=== PATIENT | male | born 1965 | race Caucasian/White ===

== ENCOUNTER 2020-07-17 14:58 | Outpatient (CLI) | payer OTHER, SELFPAY ==
--- NOTE | ~2020-07-17 | XR_ITS ---
EXAMINATION: XR abdomen obstructive series DATE: 07/17/2020 15:45 INDICATION: Abdomen pain TECHNIQUE: Supine and upright views of the abdomen. FINDINGS: 09/03/2010 The visualized lung parenchyma is normal.. There is a bowel gas pattern. Gas and stool are seen throu ghout the colon to the level of the rectum. There is no free air. IMPRESSION: 1. No acute abdominal abnormality. Reviewed, dictated and finalized at location B.
--- NOTE | ~2020-07-17 | US_ITS ---
US right upper quadrant INDICATION: Epigastric and upper abdominal pain PROCEDURE: Realtime right upper abdominal ultrasound. COMPARISON: No prior studies for comparison. FINDINGS: Visualized aspects of the pancreas are unremarkable. Liver echotexture is increased, consi stent with fatty infiltration. There is normal directional flow in the portal vein. The gallbladder is normal without stones, gallbladder wall thickening or pericholecystic fluid. Comm on bile duct measures 3 mm. No sonographic Dickinson's sign. IMPRESSION: 1: Hepatic steatosis. Reviewed, dictated and finalized at location B. IMPRESSION: 1: Hepatic steatosis.
== END 2020-07-17 14:59 | disposition home or self-care (01) ==
PROVIDERS: PCP Family Medicine; Visit Provider Family Medicine
DX: R10.11 Right upper quadrant pain (principal); K76.0 Fatty (change of) liver, not elsewhere classified
CPT/HCPCS: 74019; 76705

== ENCOUNTER 2020-12-04 13:41 | Outpatient (CLI) | payer OTHER, SELFPAY ==
--- NOTE | ~2020-12-04 | XR_ITS ---
XR knee LT 3V DATE: 12/04/2020 14:01 INDICATION: Left knee pain. No injury. TECHNIQUE: [place], AP and lateral views COMPARISON: None FINDINGS: Mild periarticular spurring of the patella. There is evidence of mild to moderate suprapatellar knee joint effusion. No fracture, dislocation, periosteal reaction or bone destruction. No radiopaque intra-articular loos e body or chondrocalcinosis. IMPRESSION: Knee joint effusion Periarticular spurring of the patella Reviewed, dictated and finalized at location A. RLIFT OPERATOR
== END 2020-12-04 13:42 | disposition home or self-care (01) ==
LOC: ANHIMG 13:52
PROVIDERS: PCP Family Medicine; Visit Provider Physician Assistant
DX: M25.462 Effusion, left knee (principal)
CPT/HCPCS: 73562

== ENCOUNTER → 2021-01-12 09:48 | Outpatient (CLI) | payer OTHER, SELFPAY ==
--- NOTE | ~2021-01-12 | MR_ITS ---
EXAMINATION: MR knee LT wo con DATE: 01/12/2021 10:30 INDICATION: Left knee pain TECHNIQUE: Magnetic resonance imaging (MRI) of the left knee was performed without intravenous contra st. Sequences included coronal PD-weighted FSE, coronal PD-weighted FS FSE, sagittal T2-weighted FSE , sagittal PD-weighted FS FSE and axial PD weighted fat saturated FSE. COMPARISON: None. FINDINGS: Medial compartment: Volar near full-thickness radial tear at the posterior horn of the medial meniscus. Partial-thickness cartilage ulceration at the anterior to central weightbearing medial femoral condyle. Mild chondral surface irregularity along the juxtaposed medial tibial plateau. Small marginal osteophytes are prese nt. Lateral compartment: Lateral meniscus is normal. Partial-thickness chondral ulceration at the junction of the anterior to central weightbearing lateral femoral condyle with underlying small central subchondral osteophyte. C artilage at the lateral tibial plateaus relatively preserved. Tiny marginal osteophytes are present. Patellofemoral compartment: Partial-thickness cartilage loss with chondral surface regularity along the lateral patellar facet. C artilage thickness relatively preserved with partial-thickness fissuring at the medial patellar facet . Partial-thickness cartilage loss with relatively smooth chondral surface along the superolateral as pect of the lateral trochlea. Small marginal osteophytes are present. Ligaments and tendons: Anterior and posterior cruciate ligaments are normal. The medial collateral ligament and fibular gio ateral ligament complex are normal. Mild tendinopathy/enthesopathy without discrete tear at the dista l quadriceps tendon and at the proximal end distal patellar tendon. The visualized medial and lateral hamstring tendons as well as the iliotibial band are normal. Fluid: Small left knee joint effusion which is primarily in the lateral gutter of the suprapatellar pouch. N o loose osteochondral bodies identified. Osseous/other: Normal marrow signal. No fracture or pathologic marrow replacing process. IMPRESSION: 1. Full-thickness radial tear at the posterior horn of the medial meniscus. 2. Mild tricompartmental osteoarthritis with small regions of high-grade chondromalacia at the weight bearing lateral femoral condyle and more extensive moderate grade chondromalacia in the medial and pa tellofemoral compartments. 3. Mild tendinopathy/enthesopathy at the osseous insertions of the extensor mechanism. Reviewed, dictated and finalized at location B. IMPRESSION: 1. Full-thickness radial tear at the posterior horn of the medial meniscus. 2. Mild tricompartmental osteoarthritis with small regions of high-grade chondr omalacia at the weightbearing lateral femoral condyle and more extensive modera te grade chondromalacia in the medial and patellofemoral compartments. 3. Mild tendinopathy/enthesopathy at the osseous insertions of the extensor mec hanism.
== END ==
PROVIDERS: PCP Family Medicine; Visit Provider Nurse Practitioner Family
DX: M17.12 Unilateral primary osteoarthritis, left knee (principal); S83.242A Other tear of medial meniscus, current injury, left knee, initial encounter; X58.XXXA Exposure to other specified factors, initial encounter
CPT/HCPCS: 73721

== ENCOUNTER → 2021-02-14 02:26 | Outpatient (CLI) | payer OTHER, SELFPAY ==
[2021-02-14 19:43] LABS: SARS-CoV-2 RNA PCR Negative
== END ==
PROVIDERS: PCP Family Medicine; Visit Provider Orthopaedic Surgery
DX: Z01.812 Encounter for preprocedural laboratory examination (principal); Z20.822 Contact with and (suspected) exposure to COVID-19
CPT/HCPCS: C9803; U0003; U0005

== ENCOUNTER 2021-02-16 08:07 | Outpatient (CLI) | payer OTHER, SELFPAY ==
[2021-02-16 08:51] LABS: Basophils Absolute Auto 0.1 K/mm3 (0.0-0.1); Basophils Percent Auto 0.6 % (0.2-1.2); Eosinophils Absolute Auto 0.3 K/mm3 (0-0.3); Eosinophils Percent Auto 2.9 % (0-4.4); Hemoglobin 15.6 g/dL (14.0-18.0); Immature Granulocyte Absolute 0.03 K/mm3 (0.00-0.031); Immature Granulocyte Percent A 0.3 % (0-0.5); Lymphocytes Absolute Auto 3.59 K/mm3 (0.9-3.2); Lymphocytes Percent Auto 33.6 % (18.3-44.2); Mean Corpuscular HGB Conc 33.2 g/dl (32-36); Mean Corpuscular Hemoglobin 29.2 pg (26-34); Mean Platelet Volume 10.2 fl (7.4-10.4); Monocytes Absolute Auto 0.6 K/mm3 (0.1-0.6); Monocytes Percent Auto 5.6 % (2.6-8.5); Neutrophils Absolute Auto 6.1 K/mm3 (1.3-6.7); Platelet Count Result 276 k/mm3 (150-375); Red Blood Count 5.34 M/mm3 (4.6-6.20); White Blood Count 10.7 K/mm3 (4.5-10.0)
[2021-02-16 10:26] LABS: Hemoglobin A1C 6.6 % (<5.7)
[2021-02-16 11:14] LABS: Alanine Aminotransferase 26 U/L (4-50); Albumin Level 4.6 g/dL (3.5-5.1); Alkaline Phosphatase 94 U/L (38-126); Anion Gap 8 mmol/L (8-16); Aspartate Amino Transferase 32 U/L (17-59); Bilirubin,Total 0.5 mg/dL (0.2-1.3); Blood Urea Nitrogen 14 mg/dL (9-20); Calcium 9.3 mg/dL (8.4-10.2); Carbon Dioxide 28 mmol/L (22-30); Chloride 100 mmol/L (98-107); Cholesterol 249 mg/dL (0-200); Estimated Glomerular Filt Rate > 60; Glucose 139 mg/dL (75-110); Potassium 4.3 mmol/L (3.4-5.0); Sodium 136 mmol/L (137-145); Triglycerides 1269 mg/dL (<150)
[2021-02-16 11:15] LABS: LDL Cholesterol Direct < 60 mg/dL
== END 2021-02-16 08:08 | disposition home or self-care (01) ==
PROVIDERS: PCP Family Medicine; Visit Provider Physician Assistant
DX: E78.2 Mixed hyperlipidemia (principal); F17.200 Nicotine dependence, unspecified, uncomplicated; R03.0 Elevated blood-pressure reading, without diagnosis of hypertension; R73.03 Prediabetes
CPT/HCPCS: 36415; 80053; 80061; 83036; 85025

== ENCOUNTER 2021-02-18 03:04 | Day surgery (SDC) | payer OTHER, SELFPAY ==
[2021-02-03 14:22] VITALS: BMI 40.6
[2021-02-18] VITALS (7 sets, daily range): BP systolic 139–165; BP diastolic 88–99; PULSE 70–80; RESP 12–20; TEMP 36.6–36.7; O2SAT 92–99; BMI 41.1
--- NOTE | 2021-02-18 07:51 | WPDANESEPPF ---
Anes - Initial Pre Proc Eval Procedure: Operation Date: 02/18/21 13:30 Proposed Procedures p Left Knee Arthroscopy, Proceed As Indicated - Jarad Walter MD Date/Time: 02/18/21 07:51 Surgeon: Jarad Walter MD Pre Op Diagnosis: left knee medial meniscus tear Patient Data Age: 55 Gender: M Height: 1.83 m Weight: 136 kg Allergies Allergy/AdvReac Type Severity Reaction Status Date / Time No Known Allergies Allergy Verified 02/18/21 11:33 Home Medications Medication Instructions Recorded Confirmed Type sildenafil 100 mg tablet 100 mg PO DAILY PRN #30 tablet 12/04/20 02/18/21 Rx chlorhexidine gluconate 4 % 1 applic TOPICAL ONCE #237 ml 01/20/21 02/18/21 Rx topical liquid tramadol 50 mg PO TID PRN 02/03/21 02/18/21 History Patient hx anesthesia problems: none Family hx anesthesia problems: none PMFSH Past Medical History Medical History (Updated 02/18/21 @ 07:53 by Malick Serrano MD) Abnormal colonoscopy Arthritis Chronic narcotic use COPD (chronic obstructive pulmonary disease) Depression Medial meniscus tear Mixed hypercholesterolemia and hypertriglyceridemia Morbid obesity with BMI of 40.0-44.9, adult STEPHANIE (obstructive sleep apnea) Serrated adenoma of colon Smoker Weight gain Family History Family History Father Hypertension Family history of elevated blood lipids Malignant neoplasm of prostate Mother Family history of malignant neoplasm of cervix Social History Social History (Updated 01/29/21 @ 16:03 by Smiley Ledezma CMA) Social History: Smoking packs per day: 0.5 Smoking cigarettes per day: 10.0 Years smoked: 18 Smoking pack-years: 9.00 Smoking status: Current every day smoker Tobacco type: cigarettes Second hand tobacco smoke exposure: Yes Alcohol intake: current Drinks per week: 14 Substance use: never Substance use type: does not use Living arrangements: with family Gender identity (if verbalized by the patient): Male Spiritual care concerns: No Anes - Eval Final PreProcedure Day of Procedure 02/18/21 07:51 Patient weight: obese Heart: regular rate and rhythm Lungs: clear to auscultation and normal air movement Airway: Mallampati scale class II Neurological: alert and oriented Last oral intake: >/= 8 hours ASA classification: III Emergent: no Anesthetic plan: proceed Anesthesia type and monitoring: general LMA and ETT Informed Consent: The patient's anesthetic plan and its attendant risks and benefits were discussed with the patient/family/POA. Questions were solicited and answers provided to the satisfaction of the patient/family/POA.
--- NOTE | 2021-02-18 08:19 | WPDHPUPDATE1 ---
History and Physical Update Update Date/Time: 02/18/21 08:19 History and Physical has been reviewed, including an updated exam of the patient. There are NO changes in the patient's condition. Risks, benefits, and alternatives have been discussed and questions answered. Patient agrees to proceed with procedure.
[2021-02-18] MEDS: CELECOXIB 200 MG CAPSULE PO (11:36)
[2021-02-18] MEDS: ACETAMINOPHEN 500 MG TABLET 1000 MG PO (11:36)
--- NOTE | 2021-02-18 12:00 | SUR.PREOP ---
PT STATES HE HAS USED CRUTCHES BEFORE AND DOESN'T NEED TRAINING. CRUTCHES WERE ORDERED
[2021-02-18] MEDS: LACTATED RINGERS 1,000 ML 30 ML IV CONT ×2 (12:12→15:45)
--- NOTE | 2021-02-18 13:33 | SUR.PREOP ---
1215; PT AWARE THAT DR ZENG IS RUNNING ABOUT 1 HOUR BEHIND SCHEDULE
[2021-02-18] MEDS: ceFAZolin 3 GM/D5W 100 ML 100 ML IVPB (14:25)
[2021-02-18] MEDS: BUPIVACAINE/EPINEPHRINE 0.5% 30 ML VIAL INFILTRATE (14:52)
--- NOTE | 2021-02-18 15:47 | PM.PROC ---
Procedure Note - Detailed Date of procedure: 02/18/21 Pre-op diagnosis: left knee medial meniscus tear Post-op diagnosis: same Procedure performed: LEFT KNEE SCOPE WITH PARTIAL MEDIAL MENISCECTOMY AND MAJOR SYNOVECTOMY Description of procedure: PATIENT WAS TAKEN TO THE OR. LEFT LEG WAS PREPPED AND DRAPED STERILE. TROCARS WERE PLACED IN THE USUAL FASHION. CAMERA WAS INTRODUCED. THERE WAS CHONDROMALACIA TO THE PATELLA FEMORAL JOINT. THERE WAS A LOT OF SYNOVITIS IN ALL COMPARTMENTS. THE MEDIAL COMPARTMENT SHOWED CHONDROMALACIA TO THE MED FEMORAL CONDYLE. A SHAVER WAS USED TO PREFORM A CHONDROPLASTY. THERE WAS A COMPLEX MEDIAL MENISCUS TEAR. THE TEAR WAS RESECTED WITH A BITER AND A SHAVER DOWN TO A SMOOTH BASE. ABOUT 20% OF THE MENISCUS WAS REMOVED. THE ACL WAS INTACT. THE LATERAL MENISCUS WAS NOT TORN. THE LAT COMPARTMENT HAD MILD CHONDROMALACIA. A CHONDROPLASTY AND SYNOVECTOMY WAS PREFORMED. THE PATELLO FEMORAL JOINT UNDERWENT CHONDROPLASTY. SYNOVECTOMY WAS PREFORMED IN THE SUPERIOR MEDIAL COMPARTMENT. THE WOUNDS WERE APPROXIMATED WITH 4.0 NYLON. STERILE DRESSING WAS APPLIED. PATIENT WAS EXTUBATED. Anesthesia: GLMA Surgeon: Jarad Walter MD Estimated blood loss (mL): 5 Complications: No immediate complications Condition: stable Disposition: PACU
[2021-02-18] MEDS: fentaNYL CITRATE INJ (*CRX) 100 MCG/2 ML VIAL 25 MCG IV PUSH ×2 (16:21→16:24)
[2021-02-18] MEDS: oxyCODONE HCL (*CRX) 5 MG TAB IR PO (17:11)
--- NOTE | 2021-02-19 08:07 | WPDANESPN ---
Anes - Prog Note Post-Op Date/Time: 02/19/21 08:07 Cardiovascular status: normal Respiratory status: normal Airway patency: baseline Mental status: baseline Post-Op hydration status: normal Vital Signs: Last Vital Signs Temp 97.8 F 02/18/21 15:50 Pulse 71 02/18/21 17:20 Resp 16 02/18/21 17:20 BP 162/92 H 02/18/21 17:20 Pulse Ox 99 02/18/21 16:35 Pain Score (VAS): 11/09 I/O: Intake & Output 02/18/21 02/19/21 02/19/21 23:59 07:59 15:59 Intake Total 650 Balance 650 Post-procedural complaints: none Patient Feedback: Patient satisfied with anesthetic care.
== END 2021-02-18 17:40 | disposition home or self-care (01) ==
PROVIDERS: PCP Family Medicine; Visit Provider Orthopaedic Surgery
PROC: (CPT 29870; principal; 2021-02-18 13:30)
DX: S83.232A Complex tear of medial meniscus, current injury, left knee, initial encounter (principal); X50.0XXA Overexertion from strenuous movement or load, initial encounter; M94.262 Chondromalacia, left knee; M65.862 Other synovitis and tenosynovitis, left lower leg; J44.9 Chronic obstructive pulmonary disease, unspecified; E78.2 Mixed hyperlipidemia; G47.33 Obstructive sleep apnea (adult) (pediatric); F32.9 Major depressive disorder, single episode, unspecified; F17.210 Nicotine dependence, cigarettes, uncomplicated; E66.01 Morbid (severe) obesity due to excess calories; Z68.41 Body mass index [BMI] 40.0-44.9, adult
CPT/HCPCS: 29881; 29876; A9270; C9803; J0690; J2250; J2405; J2704; J3010; J7120; U0003; U0005

== ENCOUNTER 2021-05-05 10:14 | Emergency (ER) | payer OTHER, SELFPAY ==
--- NOTE | ~2021-05-05 | XR_ITS ---
EXAMINATION: XR wrist RT min 3V DATE: 05/05/2021 10:33 INDICATION: Right wrist injury and pain. TECHNIQUE: 4 views of right wrist were obtained. COMPARISON: None. FINDINGS: Bone alignment is normal. There is a nondisplaced oblique fracture of distal ulnar diaphysi s. Joint spaces are normal. IMPRESSION: 1. Nondisplaced oblique fracture of distal ulnar diaphysis. Reviewed, dictated and finalized at location A.
[2021-05-05 10:24] VITALS: BP 156/76; PULSE 66; RESP 18; TEMP 36.9; O2SAT 98
--- NOTE | 2021-05-05 10:57 | ED.UPPEXIN ---
HPI - Extremity Injury (Upper) General Chief Complaint: Extremity Injury, Upper Stated Complaint: Rt forearm pain Time Seen by Provider: 05/05/21 10:25 Source: patient and RN notes reviewed Mode of arrival: ambulatory Limitations: no limitations History of Present Illness HPI narrative: Patient presents today complaining of right wrist pain. 3 days ago he fell onto outstretched hands onto a wooden deck and has been experiencing right wrist pain since that time. Denies numbness or tingling in the arm or hand. Currently rates his pain 4/10 and describes it as a dull ache. Pain increases with movement. He has been taking ibuprofen, which does provide some relief. MD complaint: injury to: right and wrist Related Data Allergies Allergy/AdvReac Type Severity Reaction Status Date / Time No Known Allergies Allergy Verified 03/06/21 10:14 Review of Systems Review of Systems: Narrative: CONSTITUTIONAL: Denies body aches, fever, chills, or sweats. EYES: Denies visual changes, redness, or discharge. ENT: Denies rhinorrhea, congestion, sore throat, or otalgia. CARDIOVASCULAR: Denies chest pain, palpitations, or edema. RESPIRATORY: Denies cough or dyspnea. GASTROINTESTINAL: Denies abdominal pain, nausea, vomiting, or diarrhea. GENITOURINARY: Denies dysuria or hematuria. SKIN: Denies rash, itching, or wounds. MUSCULOSKELETAL: Denies back pain, or myalgia. + Right wrist pain NEUROLOGIC: Denies headache, numbness, tingling, or weakness. PSYCH: Denies depression or anxiety. [facility] Past Medical History Medical History Abnormal colonoscopy Arthritis Chronic narcotic use COPD (chronic obstructive pulmonary disease) Depression Medial meniscus tear Mixed hypercholesterolemia and hypertriglyceridemia Morbid obesity with BMI of 40.0-44.9, adult STEPHANIE (obstructive sleep apnea) Serrated adenoma of colon Smoker Weight gain Family History Family History Father Hypertension Family history of elevated blood lipids Malignant neoplasm of prostate Mother Family history of malignant neoplasm of cervix Social History Social History Social History: Smoking packs per day: 0.5 Smoking cigarettes per day: 10.0 Years smoked: 18 Smoking pack-years: 9.00 Tobacco type: cigarettes Second hand tobacco smoke exposure: Yes Alcohol intake: current Drinks per week: 14 Substance use: never Substance use type: does not use Gender identity (if verbalized by the patient): Male Spiritual care concerns: No Comments At time of signature, I have reviewed and agree with nursing past medical, surgical, social and family history unless otherwise noted. Please see nursing chart for further information. There is no relevant family history pertinent to the presenting complaint Exam Narrative: Exam Narrative: GENERAL: Well-appearing, well-nourished, and in no acute distress. HEAD: Normocephalic, atraumatic. EYES: EOMI. No redness or drainage. Conjunctivae normal. ENT: Mucous membranes pink and moist. NECK: Normal AROM. CHEST: No respiratory distress. EXTREMITIES: Right wrist: Mild tenderness about the wrist. Tenderness to the distal ulna. No tenderness to the distal radius. No tenderness to the hand. Range of motion with increased pain. No snuffbox tenderness. Distal sensation intact in all fingers. Capillary refill normal. Radial pulse normal. SKIN: Warm, dry, no rash. Capillary refill normal. Normal skin turgor. NEURO: No focal deficits. Alert and oriented x3. Gait steady. PSYCH: Normal affect. No signs of depression or anxiety. Course Vital Signs Vital signs: Vital Signs Temperature 98.4 F 05/05/21 10:24 Pulse Rate 66 05/05/21 10:24 Respiratory Rate 18 05/05/21 10:24 Blood Pressure 156/76 H 05/05/21 10:24 Puls
== END 2021-05-05 11:07 | disposition home or self-care (01) ==
PROVIDERS: Emergency Provider Nurse Practitioner; PCP Family Medicine
DX: S52.601A Unspecified fracture of lower end of right ulna, initial encounter for closed fracture (principal); W19.XXXA Unspecified fall, initial encounter; M19.90 Unspecified osteoarthritis, unspecified site; J44.9 Chronic obstructive pulmonary disease, unspecified; E78.2 Mixed hyperlipidemia; G47.33 Obstructive sleep apnea (adult) (pediatric)
CPT/HCPCS: 29125; 73110; 99214; A4565; G0463

== ENCOUNTER 2022-05-09 09:43 | Outpatient (CLI) | payer OTHER, SELFPAY ==
--- NOTE | ~2022-05-09 | MR_ITS ---
EXAMINATION: MR lumbar spine wo con DATE: 05/09/2022 10:25 INDICATION: Lumbago. Radiculopathy. TECHNIQUE: Magnetic resonance imaging (MRI) of the lumbar spine was performed without intravenous con trast. Sequences included sagittal T2-weighted FSE, sagittal T2-weighted FS FSE, sagittal T1-weighted FSE, and axial T2-weighted FSE. COMPARISON: Lumbar spine radiographs dated 09/04/2018 FINDINGS: 1-2 mm retrolisthesis L1 on L2. Alignment is otherwise normal.. Vertebral body heights are normal. Th ere are Schmorl's nodes along the majority of the endplates in the lumbar and lower thoracic spine. S evere disc height loss with fibrofatty degenerative endplate changes at L5-S1. There is mild disc hei ght loss at T10-T11 and at L1-L2 through L4-L5. The conus medullaris terminates at L1-L2. There is no rmal signal in the caudal spinal cord. Paravertebral soft tissues are unremarkable. The following dis c levels are specifically discussed: T12-L1: Disc is mildly bulging. There is mild bilateral facet joint osteoarthritis. There is no neura l foraminal stenosis. There is no central canal stenosis. L1-L2: Disc is mildly bulging. There is mild bilateral facet joint osteoarthritis. There is mild bila teral neural foraminal stenosis. There is mild central canal stenosis. L2-L3: Disc is bulging. There is mild bilateral facet joint osteoarthritis. There is bilateral neural foraminal stenosis. There is mild central canal stenosis. L3-L4: Disc is bulging. There is mild bilateral facet joint osteoarthritis. There is wall to moderate bilateral neural foraminal stenosis. There is mild central canal stenosis. L4-L5: Disc is bulging with annular fissure. There is moderate left and mild to moderate right facet joint osteoarthritis. There is moderate bilateral neural foraminal stenosis. There is mild to moderat e central canal stenosis. L5-S1: Annular fissure with disc extrusion extending from foraminal zone to foraminal zone with disc material extending a few millimeters cephalad and caudal to the level of the endplates. There is mode rate bilateral facet joint osteoarthritis. There is moderate to severe bilateral neural foraminal marguerite nosis. There is mild central canal stenosis. IMPRESSION: 1. Severe lumbosacral and mild to moderate lumbar spondylosis. Reviewed, dictated and finalized at location B.
== END 2022-05-09 09:44 | disposition home or self-care (01) ==
PROVIDERS: PCP Family Medicine; Visit Provider Nurse Practitioner Family
DX: M54.50 Low back pain, unspecified (principal); M54.16 Radiculopathy, lumbar region; M43.06 Spondylolysis, lumbar region
CPT/HCPCS: 72148

== ENCOUNTER → 2022-08-20 11:36 | Outpatient (CLI) | payer OTHER, SELFPAY ==
--- NOTE | ~2022-08-20 | CT_ITS ---
EXAMINATION: CT lung screening DATE: 08/20/2022 11:50 INDICATION: Personal history of nicotine dependence, current smoker with 20 pack year history TECHNIQUE: Computed tomography (CT) of the chest was performed without intravenous contrast. The dose -length product (DLP) was 378.04 mGy-cm. Automated exposure control and iterative reconstruction tech [employer] were employed. COMPARISON: None FINDINGS: There is mild emphysema. There is a 5 mm nodule of the left lower lobe on image 70. Additio nal smaller nodules of the lungs measure 2 to 3 mm. The lungs are free of acute opacities. No pleural effusion or pneumothorax. No pathologically enlarged thoracic lymph nodes are identified. The heart size is normal. There are bridging osteophytes at multiple levels in the spine, consistent with diffu se idiopathic skeletal hyperostosis (DISH). IMPRESSION: 1. Lung-RADS category 2: Benign appearance or behavior. Continue annual screening with noncontrast lo w-dose chest CT in 12 months. Reviewed, dictated and finalized at location B. IMPRESSION: 1. Lung-RADS category 2: Benign appearance or behavior. Continue annual screeni ng with noncontrast low-dose chest CT in 12 months.
== END ==
PROVIDERS: PCP Family Medicine; Visit Provider Nurse Practitioner Gerontology
DX: Z12.2 Encounter for screening for malignant neoplasm of respiratory organs (principal); F17.210 Nicotine dependence, cigarettes, uncomplicated
CPT/HCPCS: 71271

== ENCOUNTER 2023-01-15 11:35 | Emergency (ER) | payer OTHER, SELFPAY ==
[2023-01-15 11:46] VITALS: BP 155/77; PULSE 98; RESP 16; TEMP 36.7; O2SAT 96
--- NOTE | 2023-01-15 12:14 | ED.GENADULT ---
HPI - General Adult General Chief complaint: Skin/Abscess/Foreign Body Stated complaint: Abscess Groin Area Time Seen by Provider: 01/15/23 12:15 Source: patient Mode of arrival: ambulatory Limitations: no limitations History of Present Illness HPI narrative: 57[facility] area. Patient states he has asthma co and had to get it opened up by his primary doctor and they put him on antibiotics at the time. Patient states that last couple of days he has noticed that it has come back and it is tender to the touch and painful. Denies fevers, body aches or chills. Related Data Allergies Allergy/AdvReac Type Severity Reaction Status Date / Time No Known Allergies Allergy Verified 01/15/23 11:47 Review of Systems Review of Systems: CONSTITUTIONAL: Denies fever, chills, or sweats. EYES: Denies visual changes, redness, or discharge. ENT: Denies rhinorrhea, congestion, sore throat, or otalgia. CARDIOVASCULAR: Denies chest pain, palpitations, or edema. RESPIRATORY: Denies cough or dyspnea. GASTROINTESTINAL: Denies abdominal pain, nausea, vomiting, or diarrhea. GENITOURINARY: Denies dysuria or hematuria. SKIN: Denies rash or itching. Positive wound to right groin times 2 days MUSCULOSKELETAL: Denies back pain, joint pain, or myalgia. NEUROLOGIC: Denies headache, numbness, or weakness. PSYCHIATRIC: Denies anxiety or depression. [facility] Past Medical History Medical History Abnormal colonoscopy Arthritis Chronic narcotic use COPD (chronic obstructive pulmonary disease) Depression Knee joint effusion Left knee DJD Medial meniscus tear Mixed hypercholesterolemia and hypertriglyceridemia Morbid obesity with BMI of 40.0-44.9, adult STEPHANIE (obstructive sleep apnea) Serrated adenoma of colon Smoker Weight gain Family History Family History Father Hypertension Family history of elevated blood lipids Malignant neoplasm of prostate Mother Family history of malignant neoplasm of cervix Social History Social History Social History: Smoking packs per day: 0.5 Smoking cigarettes per day: 10.0 Years smoked: 18 Smoking pack-years: 9.00 Smoking status: Former smoker Tobacco type: cigarettes Second hand tobacco smoke exposure: Yes Alcohol intake: current Drinks per week: 14 Substance use: never Substance use type: does not use Living arrangements: with family Occupation/Education: occupation Gender identity (if verbalized by the patient): Male Sexual Orientation (if Verbalized by the Patient): Straight or Heterosexual Spiritual care concerns: No Comments At the time of my signature I agree with nursing past medical history, surgical, social, and family history. There is no relevant family history pertinent to the presenting complaint. Exam Narrative: GENERAL: Well-appearing, well-nourished, and in no acute distress. HEAD: Normocephalic, atraumatic. EYES: PERRLA and EOMI. ENT: Nares clear, no rhinorrhea or epistaxis. Mucous membranes moist. NECK: Supple. No lymphadenopathy CHEST: Clear to auscultation. No respiratory distress. HEART: Regular rate and rhythm. No murmur heard. Normal peripheral pulses. ABDOMEN: Soft, nontender, nondistended, normal active bowel sounds. EXTREMITIES: Normal range of motion. No edema. SKIN: Warm, dry, no rash. patient has abscess noted to the right groin area measuring approximately 3 cm x 3 cm that is raised, erythemic and warm to touch. Very tender. NEURO: No focal deficits. Alert and oriented x3. Course Course Level of Care: Express Care Visit Vital Signs Vital signs: Vital Signs Temperature 36.7 C 01/15/23 11:46 Pulse Rate 98 01/15/23 11:46 Respiratory Rate 16 01/15/23 11:46 Blood Pressure 1
== END 2023-01-15 13:15 | disposition home or self-care (01) ==
PROVIDERS: Emergency Provider Nurse Practitioner Family; PCP Family Medicine
DX: L02.214 Cutaneous abscess of groin (principal); J44.9 Chronic obstructive pulmonary disease, unspecified; Z87.891 Personal history of nicotine dependence
CPT/HCPCS: 10060; 87070; 87075; 87076; 87205; 99213; G0463

== ENCOUNTER 2023-01-28 10:02 | Outpatient (CLI) | payer OTHER, SELFPAY ==
[2023-01-28 11:03] LABS: Basophils Absolute Auto 0.1 K/mm3 (0.0-0.1); Basophils Percent Auto 0.7 % (0.2-1.2); Eosinophils Absolute Auto 0.6 K/mm3 (0-0.3); Eosinophils Percent Auto 5.3 % (0-4.4); Hematocrit 48.3 % (42.0-52.0); Hemoglobin 16.4 g/dL (14.0-18.0); Immature Granulocyte Absolute 0.03 K/mm3 (0.00-0.031); Immature Granulocyte Percent A 0.2 % (0-0.5); Lymphocytes Absolute Auto 4.16 K/mm3 (0.9-3.2); Lymphocytes Percent Auto 34.2 % (18.3-44.2); Mean Corpuscular Hemoglobin 31.5 pg (26-34); Mean Corpuscular Volume 92.9 fl (80-100); Mean Platelet Volume 9.9 fl (7.4-10.4); Monocytes Absolute Auto 0.6 K/mm3 (0.1-0.6); Monocytes Percent Auto 4.8 % (2.6-8.5); Neutrophils Absolute Auto 6.7 K/mm3 (1.3-6.7); Neutrophils Percent Auto 54.8 % (45.5-73.1); Platelet Count Result 300 k/mm3 (150-375); Red Cell Distribution Width 12.9 % (11.5-14.5); White Blood Count 12.2 K/mm3 (4.5-10.0)
[2023-01-28 11:23] LABS: Alanine Aminotransferase 32 U/L (6-50); Albumin Level 4.6 g/dL (3.5-5.1); Alkaline Phosphatase 96 U/L (38-126); Anion Gap 5 mmol/L (8-16); Aspartate Amino Transferase 31 U/L (17-59); Bilirubin,Total 0.7 mg/dL (0.2-1.3); Blood Urea Nitrogen 11 mg/dL (9-20); Carbon Dioxide 28 mmol/L (22-30); Chloride 101 mmol/L (98-107); Cholesterol 229 mg/dL (0-200); Estimated Glomerular Filt Rate > 60; Glucose 105 mg/dL (65-110); HDL Direct 36 mg/dL; Potassium 4.6 mmol/L (3.4-5.0); Sodium 134 mmol/L (137-145)
[2023-01-28 11:28] LABS: Hemoglobin A1C 6.2 % (<5.7); LDL Cholesterol Direct 55 mg/dL
[2023-01-28 13:49] LABS: Triglycerides 1094 mg/dL (<150)
== END 2023-01-28 10:03 | disposition home or self-care (01) ==
LOC: ANHLAB 10:04
PROVIDERS: PCP Family Medicine; Visit Provider Family Medicine
DX: I10 Essential (primary) hypertension (principal); E66.01 Morbid (severe) obesity due to excess calories; Z68.41 Body mass index [BMI] 40.0-44.9, adult; E11.9 Type 2 diabetes mellitus without complications; E78.2 Mixed hyperlipidemia
CPT/HCPCS: 36415; 80053; 80061; 83036; 84443; 85025

== ENCOUNTER 2023-05-10 12:41 | Outpatient (CLI) | payer OTHER, SELFPAY ==
[2023-05-10 12:59] LABS: Basophils Absolute Auto 0.1 K/mm3 (0.0-0.1); Basophils Percent Auto 0.5 % (0.2-1.2); Eosinophils Absolute Auto 0.3 K/mm3 (0-0.3); Eosinophils Percent Auto 2.3 % (0-4.4); Hematocrit 45.8 % (42.0-52.0); Hemoglobin 15.5 g/dL (14.0-18.0); Immature Granulocyte Absolute 0.03 K/mm3 (0.00-0.031); Immature Granulocyte Percent A 0.3 % (0-0.5); Lymphocytes Absolute Auto 3.73 K/mm3 (0.9-3.2); Lymphocytes Percent Auto 34.1 % (18.3-44.2); Mean Corpuscular HGB Conc 33.8 g/dl (32-36); Mean Corpuscular Hemoglobin 30.8 pg (26-34); Mean Corpuscular Volume 91.1 fl (80-100); Monocytes Absolute Auto 0.7 K/mm3 (0.1-0.6); Monocytes Percent Auto 6.4 % (2.6-8.5); Neutrophils Absolute Auto 6.2 K/mm3 (1.3-6.7); Neutrophils Percent Auto 56.4 % (45.5-73.1); Platelet Count Result 246 k/mm3 (150-375); Red Blood Count 5.03 M/mm3 (4.6-6.20); Red Cell Distribution Width 12.9 % (11.5-14.5); White Blood Count 10.9 K/mm3 (4.5-10.0)
[2023-05-10 13:19] LABS: Alanine Aminotransferase 31 U/L (6-50); Albumin Level 4.5 g/dL (3.5-5.1); Alkaline Phosphatase 87 U/L (38-126); Anion Gap 6 mmol/L (8-16); Aspartate Amino Transferase 29 U/L (17-59); Bilirubin,Total 0.6 mg/dL (0.2-1.3); Blood Urea Nitrogen 16 mg/dL (9-20); Calcium 9.4 mg/dL (8.4-10.2); Carbon Dioxide 33 mmol/L (22-30); Chloride 98 mmol/L (98-107); Cholesterol 235 mg/dL (0-200); Estimated Glomerular Filt Rate > 60; Glucose 263 mg/dL (65-110); HDL Direct 31 mg/dL; LDL Cholesterol Direct 36 mg/dL; Potassium 4.5 mmol/L (3.4-5.0); Sodium 137 mmol/L (137-145)
[2023-05-10 13:23] LABS: Triglycerides 1301 mg/dL (<150)
[2023-05-10 14:02] LABS: Hemoglobin A1C 7.3 % (<5.7)
== END 2023-05-10 12:42 | disposition home or self-care (01) ==
LOC: ANHLAB 12:42
PROVIDERS: PCP Family Medicine; Visit Provider Physician Assistant
DX: E11.9 Type 2 diabetes mellitus without complications (principal); E78.2 Mixed hyperlipidemia
CPT/HCPCS: 36415; 80053; 80061; 83036; 85025

== ENCOUNTER 2023-06-15 17:04 | Outpatient (CLI) | payer OTHER, SELFPAY ==
[2023-06-15 17:22] LABS: Basophils Percent Auto 0.5 % (0.2-1.2); Eosinophils Absolute Auto 0.2 K/mm3 (0-0.3); Eosinophils Percent Auto 2.6 % (0-4.4); Hematocrit 47.1 % (42.0-52.0); Hemoglobin 15.9 g/dL (14.0-18.0); Immature Granulocyte Absolute 0.02 K/mm3 (0.00-0.031); Immature Granulocyte Percent A 0.2 % (0-0.5); Mean Corpuscular HGB Conc 33.8 g/dl (32-36); Mean Corpuscular Hemoglobin 30.6 pg (26-34); Mean Corpuscular Volume 90.6 fl (80-100); Mean Platelet Volume 9.4 fl (7.4-10.4); Monocytes Absolute Auto 0.7 K/mm3 (0.1-0.6); Monocytes Percent Auto 8.3 % (2.6-8.5); Neutrophils Absolute Auto 4.2 K/mm3 (1.3-6.7); Neutrophils Percent Auto 52.4 % (45.5-73.1); Platelet Count Result 276 k/mm3 (150-375); Red Cell Distribution Width 12.4 % (11.5-14.5); White Blood Count 8.1 K/mm3 (4.5-10.0)
[2023-06-15 17:32] LABS: Alanine Aminotransferase 69 U/L (6-50); Albumin Level 4.8 g/dL (3.5-5.1); Alkaline Phosphatase 69 U/L (38-126); Amylase 75 U/L (30-110); Anion Gap 10 mmol/L (8-16); Aspartate Amino Transferase 65 U/L (17-59); Bilirubin,Total 0.4 mg/dL (0.2-1.3); Blood Urea Nitrogen 14 mg/dL (9-20); Calcium 9.3 mg/dL (8.4-10.2); Carbon Dioxide 23 mmol/L (22-30); Chloride 106 mmol/L (98-107); Estimated Glomerular Filt Rate > 60; Glucose 113 mg/dL (65-110); Lipase 86 U/L (23-300); Potassium 3.9 mmol/L (3.4-5.0); Sodium 139 mmol/L (137-145)
== END 2023-06-15 17:05 | disposition home or self-care (01) ==
PROVIDERS: PCP Family Medicine; Visit Provider Physician Assistant
DX: R10.13 Epigastric pain (principal); R11.2 Nausea with vomiting, unspecified
CPT/HCPCS: 36415; 80053; 82150; 83690; 85025

== ENCOUNTER 2023-06-20 09:45 | Outpatient (CLI) | payer OTHER, SELFPAY ==
--- NOTE | ~2023-06-20 | US_ITS ---
US abdomen limited INDICATION: Upper abdominal pain PROCEDURE: Realtime right upper abdominal ultrasound. COMPARISON: No prior studies for comparison. FINDINGS: The pancreas is normal without focal mass or pancreatic ductal dilation. Increased echotex ture is increased, consistent with fatty infiltration. There is normal directional flow in the chelo l vein. The gallbladder is normal without stones, gallbladder wall thickening or pericholecystic fluid. Comm on bile duct measures 3.7 mm. No sonographic Dickinson's sign. IMPRESSION: 1: Hepatic steatosis. Reviewed, dictated and finalized at location B. IMPRESSION: 1: Hepatic steatosis.
== END 2023-06-20 09:46 | disposition home or self-care (01) ==
LOC: ANHIMG 09:47
PROVIDERS: PCP Family Medicine; Visit Provider Physician Assistant
DX: R10.10 Upper abdominal pain, unspecified (principal); R74.8 Abnormal levels of other serum enzymes; K76.0 Fatty (change of) liver, not elsewhere classified
CPT/HCPCS: 76705

== ENCOUNTER 2023-07-14 09:43 | Outpatient (CLI) | payer OTHER, SELFPAY ==
--- NOTE | 2023-07-22 18:19 | WPDHOMESLEEP ---
Sleep Study - Home Unattended Date of Study: 07/14/23 Ordering Provider: Jeremiah Olivares APRN Interpreting Provider: Julia Moss MD Home Sleep Study Type: Watch PAT Height: 1.83 m Weight: 131.542 kg Body Mass Index: 39.3 Neck Circumference (inches): 20 [place]: 5 Reason for Sleep Study Known obstructive sleep apnea, off CPAP several years, loud snoring Sleep History Antelmo Moreno is a 57-year-old man who snores loudly. He has been on CPAP after a sleep study 10 years ago. He used it for about a year but it was uncomfortable and he quit using it. He is having a home sleep test for evaluation of obstructive sleep apnea. He reports waking up in the middle of the night gasping for breath. This problem started 20 years ago. He constantly awakens from sleep short of breath. He constantly wakes at night with heartburn, belching or coughing.??He constantly snores, constantly snores loudly enough that others complain. He constantly has trouble sleeping when he has a cold. He constantly wakes up gasping for breath during the night. He constantly has breathing problems at night. He constantly sweats excessively at night. He constantly notices his heart pounding or beating irregularly during the night. He constantly falls asleep during the day. He never falls asleep involuntarily, and never falls asleep while driving. He never experiences loss of muscle tone with strong emotion. He never feels paralyzed on waking or falling asleep. He never experiences vivid dreams upon waking or falling asleep. He never feels afraid of going to sleep. He frequently has nightmares. He frequently recalls his dreams. He frequently has thoughts racing through his mind. He never feels sad or depressed. He occasionally feels anxiety. He never notices parts of his body jerk. He occasionally kicks during the night. He occasionally feels crawling or aching feelings in his legs. He occasionally feels leg pain at night. He never grinds his teeth during sleep, never has morning jaw pain. He constantly feels bothered by pain during the day, and he is constantly awakened by pain during the night. He constantly wakes up feeling stiff in the morning, constantly wakes up feeling sore or achy in the morning. He constantly awakens with pain in his neck, spine, or joints. He constantly has daytime difficulties at work due to excessive sleepiness. Normal bedtime is 9:00 p.m., usually falling asleep within 1-3 hours. He typically gets about 8 hours of sleep per night. His wake up time is 6:45 a.m. He wakes up between 5 and 8 times during the night. He may stay awake for 15 minutes but may not be able to return to sleep for up to 2 hours. If he wakes during the night , he uses his cell phone. He stays up later on the weekends and he sleeps later. He is usually drowsy for 3 hours after waking. He takes naps in the afternoon or evening. A short nap lasting 10 or 15 minutes may be refreshing. He feels better in the evening compared to other times a day. Habits:??Tobacco: Quit 3 months ago. Caffeine:1 per day. Alcohol: 2-3 on the weekends. Recreational substances: none PMFSH Past Medical History Medical History Abnormal colonoscopy Arthritis Chronic narcotic use COPD (chronic obstructive pulmonary disease) Depression Knee joint effusion Left knee DJD Medial meniscus tear Mixed hypercholesterolemia and hypertriglyceridemia Morbid obesity with BMI of 40.0-44.9, adult STEPHANIE (obstructive sleep apnea) Serrated adenoma of colon Smoker Weight gain Family History Family History Father Hypertension Family history of elevated blood lipids Malignant neoplasm of prostate Mother Family history of malignant neoplasm of cervix Social History Social History Social History: Smoking packs per day:
[2023-07-24 14:04] VITALS: BMI 39.3
--- NOTE | 2023-08-11 10:01 | SLEEP ---
new calls [phone]
== END 2023-07-15 12:55 | disposition home or self-care (01) ==
LOC: ANHCSM 09:43
PROVIDERS: PCP Family Medicine; Visit Provider Nurse Practitioner Family
DX: G47.30 Sleep apnea, unspecified (principal); G47.33 Obstructive sleep apnea (adult) (pediatric)
CPT/HCPCS: 95800

== ENCOUNTER 2023-08-15 08:21 | Outpatient (CLI) | payer OTHER, SELFPAY ==
--- NOTE | 2023-09-04 19:52 | WPDSLEEPSTUD ---
Sleep Study Date of Study: 08/15/23 Ordering Provider: Jeremiah Olivares APRN Interpreting Physician: Julia Moss MD Sleep Study Type: CPAP Titration Height: 1.83 m Weight: 136.531 kg Body Mass Index: 40.8 Neck Circumference (inches): 19.25 [place]: 5 Reason for Sleep Study * 07/14/2023 home sleep test using WatchPAt showed severe obstructive sleep apnea, AHI is 83.4, central apnea index elevated at 20.2, jay 60%, average saturations 86% which is low. He returns for a CPAP titration. Sleep History Antelmo Moreno is a 7-year-old man who snores loudly. He used CPAP after his sleep study 10 years ago, quit after a year due to feeling that it was not comfortable. He had a home sleep test 07/14/23 showing severe obstructive and moderate central sleep apnea. He reports waking up in the middle of the night gasping for breath. This problem started 20 years ago. He constantly awakens from sleep short of breath. He constantly wakes at night with heartburn, belching or coughing. He constantly snores, constantly snores loudly enough that others complain. He constantly has trouble sleeping when he has a cold. He constantly wakes up gasping for breath during the night. He constantly has breathing problems at night. He constantly sweats excessively at night. He constantly notices his heart pounding or beating irregularly during the night. He constantly falls asleep during the day. He never falls asleep involuntarily, and never falls asleep while driving. He never experiences loss of muscle tone with strong emotion. He never feels paralyzed on waking or falling asleep. He never experiences vivid dreams upon waking or falling asleep. He never feels afraid of going to sleep. He frequently has nightmares. He frequently recalls his dreams. He frequently has thoughts racing through his mind. He never feels sad or depressed. He occasionally feels anxiety. He never notices parts of his body jerk. He occasionally kicks during the night. He occasionally feels crawling or aching feelings in his legs. He occasionally feels leg pain at night. He never grinds his teeth during sleep, never has morning jaw pain. He constantly feels bothered by pain during the day, and he is constantly awakened by pain during the night. He constantly wakes up feeling stiff in the morning, constantly wakes up feeling sore or achy in the morning. He constantly awakens with pain in his neck, spine, or joints. He constantly has daytime difficulties at work due to excessive sleepiness. Normal bedtime is 9:00 p.m., usually falling asleep within 1-3 hours. He typically gets about 8 hours of sleep per night. His wake up time is 6:45 a.m. He wakes up between 5 and 8 times during the night. He may stay awake for 15 minutes but may not be able to return to sleep for up to 2 hours. If he wakes during the night , he uses his cell phone. He stays up later on the weekends and he sleeps later. He is usually drowsy for 3 hours after waking. He takes naps in the afternoon or evening. A short nap lasting 10 or 15 minutes may be refreshing. He feels better in the evening compared to other times a day. Habits: Tobacco: Quit 3 months ago. Caffeine:1 per day. Alcohol: 2-3 on the weekends. Recreational substances: none PMFSH Past Medical History Medical History Abnormal colonoscopy Arthritis Chronic narcotic use COPD (chronic obstructive pulmonary disease) Depression Knee joint effusion Left knee DJD Medial meniscus tear Mixed hypercholesterolemia and hypertriglyceridemia Morbid obesity with BMI of 40.0-44.9, adult STEPHANIE (obstructive sleep apnea) Serrated adenoma of colon Smoker Weight gain Family History Family History Father Hypertension Family history of elevated blood lipids Malignant neoplasm of prostate Mother Family history of malignant neoplasm of cervix Soci
[2023-09-04 21:10] VITALS: BMI 40.8
== END 2023-08-16 06:29 | disposition home or self-care (01) ==
LOC: ANHCSM 08:25
PROVIDERS: PCP Family Medicine; Visit Provider Nurse Practitioner Family
DX: G47.33 Obstructive sleep apnea (adult) (pediatric) (principal); Z68.41 Body mass index [BMI] 40.0-44.9, adult
CPT/HCPCS: 95811

== ENCOUNTER 2024-02-03 07:49 | Outpatient (CLI) | payer OTHER, SELFPAY ==
[2024-02-03 08:58] LABS: Basophils Absolute Auto 0.1 K/mm3 (0.0-0.1); Basophils Percent Auto 0.6 % (0.2-1.2); Eosinophils Absolute Auto 0.4 K/mm3 (0-0.3); Eosinophils Percent Auto 3.7 % (0-4.4); Hematocrit 51.8 % (42.0-52.0); Hemoglobin 17.1 g/dL (14.0-18.0); Immature Granulocyte Absolute 0.03 K/mm3 (0.00-0.031); Immature Granulocyte Percent A 0.3 % (0-0.5); Lymphocytes Absolute Auto 3.26 K/mm3 (0.9-3.2); Lymphocytes Percent Auto 28.9 % (18.3-44.2); Mean Corpuscular Hemoglobin 30.4 pg (26-34); Mean Platelet Volume 9.9 fl (7.4-10.4); Monocytes Absolute Auto 0.6 K/mm3 (0.1-0.6); Monocytes Percent Auto 5.5 % (2.6-8.5); Neutrophils Absolute Auto 6.9 K/mm3 (1.3-6.7); Platelet Count Result 310 k/mm3 (150-375); Red Blood Count 5.63 M/mm3 (4.6-6.20); Red Cell Distribution Width 13.6 % (11.5-14.5); White Blood Count 11.3 K/mm3 (4.5-10.0)
[2024-02-03 09:08] LABS: Alanine Aminotransferase 22 U/L (6-50); Albumin Level 4.7 g/dL (3.5-5.1); Alkaline Phosphatase 80 U/L (38-126); Anion Gap 8 mmol/L (4-12); Aspartate Amino Transferase 26 U/L (17-59); Bilirubin,Total 0.5 mg/dL (0.2-1.3); Blood Urea Nitrogen 15 mg/dL (9-20); Calcium 9.6 mg/dL (8.4-10.2); Carbon Dioxide 22 mmol/L (22-30); Chloride 107 mmol/L (98-107); Cholesterol 205 mg/dL (0-200); Estimated Glomerular Filt Rate > 60; Glucose 98 mg/dL (65-110); HDL Direct 35 mg/dL; Potassium 4.1 mmol/L (3.4-5.0); Sodium 137 mmol/L (137-145); Triglycerides 348 mg/dL (<150)
[2024-02-03 09:19] LABS: LDL Cholesterol Direct 117 mg/dL
[2024-02-03 10:16] LABS: Hemoglobin A1C 5.3 % (<5.7)
== END 2024-02-03 07:50 | disposition home or self-care (01) ==
PROVIDERS: Physician Assistant; PCP Family Medicine; Referring Provider Nurse Practitioner; Visit Provider Nurse Practitioner Family
DX: E11.9 Type 2 diabetes mellitus without complications (principal); G47.61 Periodic limb movement disorder; F33.1 Major depressive disorder, recurrent, moderate
CPT/HCPCS: 36415; 80053; 80061; 82728; 83036; 85025

== ENCOUNTER 2024-03-29 11:34 | Outpatient (CLI) | payer OTHER, SELFPAY | END 2024-03-29 11:35 | disposition home or self-care (01) | LOC: ANHLAB 11:35 | PROVIDERS: PCP Family Medicine; Visit Provider Physician Assistant | DX: D64.9 Anemia, unspecified (principal) | CPT/HCPCS: 36415; 82728 ==

== ENCOUNTER 2024-06-14 14:45 | Outpatient (CLI) | payer OTHER, SELFPAY | END 2024-06-14 14:46 | disposition home or self-care (01) | PROVIDERS: PCP Family Medicine; Visit Provider Physician Assistant | DX: D64.9 Anemia, unspecified (principal) | CPT/HCPCS: 36415; 82728 ==

== ENCOUNTER 2024-08-24 09:37 | Outpatient (CLI) | payer OTHER, SELFPAY ==
[2024-08-24 10:26] LABS: Hemoglobin A1C 5.3 % (<5.7)
[2024-08-24 10:30] LABS: Alanine Aminotransferase 18 U/L (6-50); Albumin Level 4.7 g/dL (3.5-5.1); Alkaline Phosphatase 75 U/L (38-126); Anion Gap 10 mmol/L (4-12); Aspartate Amino Transferase 24 U/L (17-59); Bilirubin,Total 0.9 mg/dL (0.2-1.3); Blood Urea Nitrogen 16 mg/dL (9-20); Calcium 9.4 mg/dL (8.4-10.2); Carbon Dioxide 24 mmol/L (22-30); Chloride 102 mmol/L (98-107); Cholesterol 230 mg/dL (0-200); Estimated Glomerular Filt Rate > 60; Glucose 95 mg/dL (65-110); HDL Direct 40 mg/dL; Sodium 136 mmol/L (137-145); Triglycerides 281 mg/dL (<150)
[2024-08-24 10:45] LABS: LDL Cholesterol Direct 116 mg/dL
== END 2024-08-24 09:38 | disposition home or self-care (01) ==
LOC: ANHLAB 09:38
PROVIDERS: PCP Family Medicine; Visit Provider Student in an Organized Health Care Education/Training Program
DX: E78.5 Hyperlipidemia, unspecified (principal); E11.65 Type 2 diabetes mellitus with hyperglycemia; I10 Essential (primary) hypertension
CPT/HCPCS: 36415; 80053; 80061; 83036

== ENCOUNTER 2024-12-28 06:59 | Outpatient (CLI) | payer OTHER, SELFPAY ==
[2024-12-28 09:10] LABS: Alanine Aminotransferase 22 U/L (6-50); Albumin Level 4.5 g/dL (3.5-5.1); Alkaline Phosphatase 71 U/L (38-126); Anion Gap 9 mmol/L (4-12); Aspartate Amino Transferase 29 U/L (17-59); Bilirubin,Total 0.5 mg/dL (0.2-1.3); Blood Urea Nitrogen 13 mg/dL (9-20); Calcium 9.3 mg/dL (8.4-10.2); Carbon Dioxide 26 mmol/L (22-30); Chloride 103 mmol/L (98-107); Cholesterol 211 mg/dL (0-200); Estimated Glomerular Filt Rate > 60; Glucose 88 mg/dL (65-110); HDL Direct 42 mg/dL; Potassium 4.1 mmol/L (3.4-5.0); Sodium 138 mmol/L (137-145); Triglycerides 432 mg/dL (<150)
[2024-12-28 09:21] LABS: LDL Cholesterol Direct 101 mg/dL
== END 2024-12-28 07:00 | disposition home or self-care (01) ==
LOC: ANHLAB 07:01
PROVIDERS: PCP Family Medicine; Visit Provider Student in an Organized Health Care Education/Training Program
DX: E78.5 Hyperlipidemia, unspecified (principal); E11.65 Type 2 diabetes mellitus with hyperglycemia
CPT/HCPCS: 36415; 80053; 80061; 83036

== ENCOUNTER 2025-02-06 09:52 | Observation (INO) | payer OTHER, SELFPAY ==
[2025-02-06] VITALS (15 sets, daily range): BP systolic 98–144; BP diastolic 60–88; PULSE 55–77; RESP 14–22; TEMP 36.2–36.6; O2SAT 93–100; BMI 34.0; BMI 34.5
--- NOTE | ~2025-02-06 | CT_ITS ---
CLINICAL INDICATION: Right lower quadrant pain COMPARISON: None. TECHNIQUE: Multiple contiguous axial images of the abdomen and pelvis were performed following the ad ministration of with 100 mL Omnipaque-350 intravenous contrast The dose-length product (DLP) was 1453.72 mGy-cm. Automated exposure control and iterative reconstruction technique were employed. FINDINGS/OBSERVATIONS: Visualized lower thorax: The bilateral lung bases are clear. The heart is of normal size, without pericardial effusion. Small hiatal hernia is present. Liver: The liver demonstrates homogeneous enhancement and is enlarged measuring 20 cm in longitudinal dimens ion. Gallbladder and biliary system: The gallbladder is only minimally distended, and otherwise unremarkable. Pancreas: The pancreas enhances homogeneously without ductal dilatation. Spleen: The spleen enhances homogeneously and is enlarged measuring 13 cm in longitudinal dimension. Kidneys: The bilateral kidneys enhance symmetrically without hydronephrosis or renal calculi. Adrenal glands: Unremarkable. Gastrointestinal tract: Fecal stasis within the colon. Appendix: The appendix is distended with fluid and dilated measuring 15 mm in caliber with surrounding inflamma tory change. These findings are consistent with acute appendicitis without gross perforation or adjac ent fluid collection. Vasculature: Unremarkable. Lymph nodes: No pathologically enlarged or morphologically suspicious lymph nodes within the retroperitoneum or at the root of the mesentery. Pelvic structures: The bladder is decompressed, and otherwise unremarkable. The prostate gland is not enlarged. Body wall and musculoskeletal: Small fat-containing umbilical hernia. Age advanced degenerative disease within the lower thoracic and lumbosacral spine. IMPRESSION: Acute appendicitis, as detailed above. Reviewed, dictated and finalized at location A.
[2025-02-06 10:43] LABS: Basophils Absolute Auto 0.1 K/mm3 (0.0-0.1); Basophils Percent Auto 0.3 % (0.2-1.2); Eosinophils Absolute Auto 0.2 K/mm3 (0-0.3); Hematocrit 48.3 % (42.0-52.0); Hemoglobin 16.4 g/dL (14.0-18.0); Immature Granulocyte Absolute 0.06 K/mm3 (0.00-0.031); Immature Granulocyte Percent A 0.4 % (0-0.5); Lymphocytes Absolute Auto 3.61 K/mm3 (0.9-3.2); Lymphocytes Percent Auto 22.6 % (18.3-44.2); Mean Corpuscular Volume 91.3 fl (80-100); Mean Platelet Volume 9.3 fl (7.4-10.4); Monocytes Absolute Auto 1.3 K/mm3 (0.1-0.6); Monocytes Percent Auto 7.9 % (2.6-8.5); Neutrophils Absolute Auto 10.8 K/mm3 (1.3-6.7); Neutrophils Percent Auto 67.8 % (45.5-73.1); Platelet Count Result 213 k/mm3 (150-375); Red Blood Count 5.29 M/mm3 (4.6-6.20); Red Cell Distribution Width 13.3 % (11.5-14.5)
[2025-02-06 10:53] LABS: Add Urine Microscopic? YES; Appearance Urine Clear (Clear); Bacteria Urine None Seen /hpf; Bilirubin Urine Negative (Negative); Blood Urine Negative (Negative); Color Urine Yellow (Yellow); Glucose Urine UA 3+ mg/dL (Negative); Ketones Urine 1+ mg/dL (Negative); Leukocyte Esterase Ur Negative LEU/UL (Negative); Nitrate Urine Negative (Negative); Non Pathogenic Casts 0-2; Protein Urine 1+ mg/dL (Negative); RBC Urine 0-2 /hpf (0-2); Specific Grav Ur 1.032 (1.001-1.035); Squamous Epithelial Cell Urine None Seen /hpf (Few); Urobilinogen Urine 0.2 mg/dL (<2.0); WBC Urine 0-5 /hpf (0-3); pH Urine 6.5 (5.0-9.0)
[2025-02-06 10:55] LABS: Alanine Aminotransferase 21 U/L (6-50); Albumin Level 4.5 g/dL (3.5-5.1); Alkaline Phosphatase 56 U/L (38-126); Anion Gap 8 mmol/L (4-12); Aspartate Amino Transferase 26 U/L (17-59); Bilirubin,Total 1.1 mg/dL (0.2-1.3); Blood Urea Nitrogen 10 mg/dL (9-20); Calcium 9.3 mg/dL (8.4-10.2); Carbon Dioxide 26 mmol/L (22-30); Chloride 101 mmol/L (98-107); Estimated CRCL calculation 129 ml/min; Estimated Glomerular Filt Rate > 60; Glucose 98 mg/dL (65-110); Lipase 89 U/L (23-300); Potassium 4.2 mmol/L (3.4-5.0); Sodium 135 mmol/L (137-145)
--- NOTE | 2025-02-06 10:58 | ECG_ITS ---
Test Date: 2025-02-06 11:04:30 Measurements Intervals [place] Rate: 74 P: 14 WI: 177 QRS: -10 QRSD: 105 T: 30 QT: 382 QTc: 424 Interpretive Statements SINUS RHYTHM NORMAL ECG No previous ECG available for comparison Electronically Signed On 02-06-2025 11:08:21 CDT by Rhett Coon D.O.
--- NOTE | 2025-02-06 11:01 | ED_ITS ---
HPI - Abdominal Pain General Chief Complaint: Abdominal Pain Stated Complaint: constipated, requesting CT Time Seen by Provider: 02/06/25 10:35 History of Present Illness HPI narrative: Patient is a 59-year-old male who presents to the ER with right lower quadrant pain. He reports the pain started near his his mid sternum approximately 4 days ago and has worked its way down to his right lower quadrant. Patient denies any recent fevers, urinary symptoms, acute back pain. He endorses a history of IBS, COPD, diabetes, hyperlipidemia. Patient reports his last bowel movement was approximately 4 days ago and it was loose. He reports he saw his primary care provider this morning who tried to order him a CT scan but his insurance would not approve it so he was advised to come here for further evaluation. Patient also reports he used to drink alcohol a lot more than I do now. Related Data Allergies Allergy/AdvReac Type Severity Reaction Status Date / Time No Known Allergies Allergy Verified 02/06/25 08:59 Review of Systems 2 Review of Systems: All systems reviewed & are unremarkable except as noted in HPI and below PMFSH Past Medical History Medical History Quadriceps tendonitis Degenerative joint disease of knee Viral URI with cough Throat ulcer Subacute maxillary sinusitis Streptococcus A carrier or suspected carrier SOB (shortness of breath) Seizure-like activity Obstructive sleep apnea (adult) (pediatric) Nicotine dependence, unspecified, uncomplicated Nicotine dependence, cigarettes, uncomplicated Mixed hyperlipidemia Low back sprain FHx: prostate cancer COPD (chronic obstructive pulmonary disease) Acute pharyngitis, unspecified Acute bronchitis due to other specified organisms Acute bilateral low back pain without sciatica Acute bacterial conjunctivitis of right eye New onset type 2 diabetes mellitus Knee joint effusion Left knee DJD Effusion of knee joint right Right distal ulnar fracture Morbid obesity with BMI of 40.0-44.9, adult Chronic narcotic use Arthritis STEPHANIE (obstructive sleep apnea) COPD (chronic obstructive pulmonary disease) Medial meniscus tear Depression Weight gain Acute pain of left knee Mixed hypercholesterolemia and hypertriglyceridemia Corneal abrasion, left Abnormal colonoscopy Serrated adenoma of colon Smoker Acute bronchitis Acute sinusitis Surgical History Surgical History Abscess of right thigh Family History Family History Father Hypertension Family history of elevated blood lipids Malignant neoplasm of prostate Mother Family history of malignant neoplasm of cervix Social History Social History Social History: Smoking packs per day: 0.5 Smoking cigarettes per day: 10.0 Years smoked: 18 Smoking pack-years: 9.00 Smoking status: Former smoker Tobacco type: cigarettes Second hand tobacco smoke exposure: Yes Alcohol intake: current Drinks per week: 8 Substance use: never Substance use type: does not use Lack of Transportation: No Lack of Food: Never True Current Housing: I Have Housing Concerned About Future Housing: No Difficulty Paying Gas/Electric Bills: No Difficulty Paying for Meds: No Currently Unemployed: No Education: Decline to Answer Difficulty w/ Childcare or Family Care: No Living arrangements: with family Occupation/Education: occupation Additional occupation/education comments: [employer] Gender identity (if verbalized by the patient): Male Sexual Orientation (if Verbalized by the Patient): Straight or Heterosexual Spiritual care concerns: No Exam 2 Narrative: GENERAL: Well appearing, well-nourished, non-toxic, in no acute distress. HEAD: Normocephalic, atraumatic. NECK: Supple. No adenopathy, no masses. RESPIRATORY: Airway patent, respirations nonlabored. Clear to auscultation bilaterally, no rales, rhonchi, wheezing. CARDIOVASCULAR: Regular rate and rhythm without murmurs, rubs, or gallops. Peripheral pulses 2+ and equal bilaterally. ABDOMINAL: Soft, + tender RUQ and RLQ, negative Dickinson's sign, + Psoas sign, nondistended, no hepatosplenomegaly. Normoactive BS. MUSCULOSKELETAL: Moves all extremities. Strength/ROM intact without gross deformities. SKIN: Warm, dry, normal color. No rashes. NEURO: A&O X3. Speech clear. Cranial nerves II-XII intact. No ataxic movements. PSYCHIATRIC: Appropriate mood and affect. Normal interaction. Course Vital Signs Vital signs: Vital Signs Temperature 36.6 C 02/06/25 10:25 Pulse Rate 77 02/06/25 10:25 Respiratory Rate 17 02/06/25 10:25 Blood Pressure 144/88 H 02/06/25 10:25 Pulse Oximetry 96 02/06/25 10:25 Oxygen Delivery Room Air 02/06/25 10:25 Temperature 36.6 C 02/06/25 10:25 Pulse Rate 76 02/06/25 13:03 Respiratory Rate 14 02/06/25 13:03 Blood Pressure 123/76 02/06/25 13:03 Pulse Oximetry 99 02/06/25 13:03 Oxygen Delivery Room Air 02/06/25 10:25 MDM - Abdominal Pain MDM Narrative Medical decision making narrative: Patient is a 59-year-old male who presents to the ER with right lower quadrant pain. He reports the pain started near his his mid sternum approximately 4 days ago and has worked its way down to his right lower quadrant. Patient denies any recent fevers, urinary symptoms, acute back pain. He endorses a history of IBS, COPD, diabetes, hyperlipidemia. Patient reports his last bowel movement was approximately 4 days ago and it was loose. He reports he saw his primary care provider this morning who tried to order him a CT scan but his insurance would not approve it so he was advised to come here for further evaluation. Patient also reports he used to drink alcohol a lot more than I do now. Labs Ordered: CBC, CMP, troponin, PTT, INR, lipase, lactic acid, blood cultures Imaging Ordered: CT abdomen pelvis Medications Ordered: Protonix IV, 1 L normal saline IV bolus, Pepcid IV, Dilaudid IV, Zosyn IV Results: Pt's CT scan indicates The appendix is distended with fluid and dilated measuring 15 mm in caliber with surrounding inflammatory change. These findings are consistent with acute appendicitis without gross perforation or adjacent fluid collection. Diagnosis: acute appendicitis Consults: 1230- general surgery called for consult 1315- Spoke with Dr. Santiago who advised someone from surgery would come down to the ER to evaluated pt. 1345- Pt will be taken to the OR for surgery later this afternoon. Patient Education/Shared MDM: Results of imaging and lab work shared with patient. He endorses improvement following medication administration. Will continue to monitor pt for pain. Differential Diagnosis Differential diagnosis: Likely abdominal pain, acute appendicitis, calculus of kidney, diverticulitis, gastroenteritis and small bowel obstruction Lab Data Attestation: I reviewed the patient's lab results. 02/06/25 12:54 02/06/25 10:33 Labs: Lab Results 02/06/25 02/06/25 02/06/25 Range/Units 10:33 10:39 10:41 WBC 16.0 H (4.5-10.0) K/mm3 RBC 5.29 (4.6-6.20) M/mm3 Hgb 16.4 (14.0-18.0) g/dL Hct 48.3 (42.0-52.0) % MCV 91.3 (80-100) fl MCH 31.0 (26-34) pg MCHC 34.0 (32-36) g/dl RDW 13.3 (11.5-14.5) % Plt Count 213 (150-375) k/mm3 MPV 9.3 (7.4-10.4) fl Immature Gran % (Auto) 0.4 (0-0.5) % Neut % (Auto) 67.8 (45.5-73.1) % Lymph % (Auto) 22.6 (18.3-44.2) % [place] % (Auto) 7.9 (2.6-8.5) % Eos % (Auto) 1.0 (0-4.4) % Baso % (Auto) 0.3 (0.2-1.2) % Lymph # (Auto) 3.61 H (0.9-3.2) K/mm3 [place] # (Auto) 1.3 H (0.1-0.6) K/mm3 Eos # (Auto) 0.2 (0-0.3) K/mm3 Baso # (Auto) 0.1 (0.0-0.1) K/mm3 Abs Immat Gran (auto) 0.06 H (0.00-0.031) K/mm3 Absolute Neuts (auto) 10.8 H (1.3-6.7) K/mm3 Absolute Nucleated RBC 0.000 (0.0-0.012) K/mm3 Nucleated RBC % 0.0 (0.0-0.2) % PT 13.3 (11.1-14.7) Seconds INR 1.0 APTT 28.0 (22.3-36.8) Seconds Sodium 135 L Cancelled (137-145) mmol/L Potassium 4.2 Cancelled (3.4-5.0) mmol/L Chloride 101 Cancelled (98-107) mmol/L Carbon Dioxide 26 Cancelled (22-30) mmol/L Anion Gap 8 Cancelled (4-12) mmol/L BUN 10 Cancelled (9-20) mg/dL Creatinine 0.70 Cancelled (0.7-1.3) mg/dL Estim Creat Clear Calc 129 Cancelled ml/min Estimated GFR > 60 Cancelled (59 - ) Glucose 98 Cancelled (65-110) mg/dL Lactic Acid (0.7-2.0) mmol/L Calcium 9.3 Cancelled (8.4-10.2) mg/dL Total Bilirubin 1.1 Cancelled (0.2-1.3) mg/dL AST 26 Cancelled (17-59) U/L ALT 21 Cancelled (6-50) U/L Alkaline Phosphatase 56 Cancelled (38-126) U/L Troponin I < 0.012 (0.000-0.034) ng/mL Total Protein 8.0 Cancelled (6.3-8.2) g/dL Albumin 4.5 Cancelled (3.5-5.1) g/dL Lipase 89 Cancelled (23-300) U/L Urine Color Yellow (Yellow) Urine Appearance Clear (Clear) Urine pH 6.5 (5.0-9.0) Ur Specific [place] 1.032 (1.001-1.035) Urine Protein 1+ H (Negative) mg/dL Urine Glucose (UA) 3+ H (Negative) mg/dL Urine Ketones 1+ H (Negative) mg/dL Ur Blood (Man) Negative (Negative) Urine Nitrate Negative (Negative) Urine Bilirubin Negative (Negative) Urine Urobilinogen 0.2 (<2.0) mg/dL Leukocyte Esterase Rfl Negative (Negative) ARMANDO/UL Urine RBC 0-2 (0-2) /hpf Urine WBC 0-5 (0-3) /hpf Ur Squamous Epith Cells None seen (Few) /hpf Urine Bacteria None seen /hpf Urine Casts 0-2 02/06/25 Range/Units 12:54 WBC 14.0 H (4.5-10.0) K/mm3 RBC 5.05 (4.6-6.20) M/mm3 Hgb 15.7 (14.0-18.0) g/dL Hct 46.1 (42.0-52.0) % MCV 91.3 (80-100) fl MCH 31.1 (26-34) pg MCHC 34.1 (32-36) g/dl RDW 13.4 (11.5-14.5) % Plt Count 190 (150-375) k/mm3 MPV 9.3 (7.4-10.4) fl Immature Gran % (Auto) 0.4 (0-0.5) % Neut % (Auto) 68.8 (45.5-73.1) % Lymph % (Auto) 21.7 (18.3-44.2) % [place] % (Auto) 7.4 (2.6-8.5) % Eos % (Auto) 1.4 (0-4.4) % Baso % (Auto) 0.3 (0.2-1.2) % Lymph # (Auto) 3.04 (0.9-3.2) K/mm3 [place] # (Auto) 1.0 H (0.1-0.6) K/mm3 Eos # (Auto) 0.2 (0-0.3) K/mm3 Baso # (Auto) 0.0 (0.0-0.1) K/mm3 Abs Immat Gran (auto) 0.06 H (0.00-0.031) K/mm3 Absolute Neuts (auto) 9.6 H (1.3-6.7) K/mm3 Absolute Nucleated RBC 0.000 (0.0-0.012) K/mm3 Nucleated RBC % 0.0 (0.0-0.2) % PT (11.1-14.7) Seconds INR APTT (22.3-36.8) Seconds Sodium (137-145) mmol/L Potassium (3.4-5.0) mmol/L Chloride (98-107) mmol/L Carbon Dioxide (22-30) mmol/L Anion Gap (4-12) mmol/L BUN (9-20) mg/dL Creatinine (0.7-1.3) mg/dL Estim Creat Clear Calc ml/min Estimated GFR (59 - ) Glucose (65-110) mg/dL Lactic Acid 0.7 (0.7-2.0) mmol/L Calcium (8.4-10.2) mg/dL Total Bilirubin (0.2-1.3) mg/dL AST (17-59) U/L ALT (6-50) U/L Alkaline Phosphatase (38-126) U/L Troponin I (0.000-0.034) ng/mL Total Protein (6.3-8.2) g/dL Albumin (3.5-5.1) g/dL Lipase (23-300) U/L Urine Color (Yellow) Urine Appearance (Clear) Urine pH (5.0-9.0) Ur Specific [place] (1.001-1.035) Urine Protein (Negative) mg/dL Urine Glucose (UA) (Negative) mg/dL Urine Ketones (Negative) mg/dL Ur Blood (Man) (Negative) Urine Nitrate (Negative) Urine Bilirubin (Negative) Urine Urobilinogen (<2.0) mg/dL Leukocyte Esterase Rfl (Negative) ARMANDO/UL Urine RBC (0-2) /hpf Urine WBC (0-3) /hpf Ur Squamous Epith Cells (Few) /hpf Urine Bacteria /hpf Urine Casts Imaging Data Attestation: I personally reviewed and interpreted this imaging study as follows: Radiologist's impression: ITS Impressions Abdomen/Pelvis CT 02/06/25 11:31 IMPRESSION: Acute appendicitis, as detailed above. Discharge Plan Discharge Clinical Impression: Appendicitis, Abdominal pain Patient Disposition: Still a Patient Condition: Guarded Prognosis Instructions: Antibiotic Form Patient Language: Green[place]ic Prescriptions: No Action ferrous sulfate 325 mg (65 mg iron) tablet,delayed release (DR/EC) See Rx Instructions .ROUTE .COMPLEX Qty: 90 1RF Dose Instruction: TAKE 1 TABLET BY MOUTH DAILY Rx Instructions: TAKE 1 TABLET BY MOUTH DAILY fluoxetine 10 mg capsule See Rx Instructions .ROUTE .COMPLEX Qty: 180 1RF Dose Instruction: TAKE ONE CAPSULE BY MOUTH TWICE DAILY( IN THE MORNING AND AT NOON/ MIDDAY) Rx Instructions: TAKE ONE CAPSULE BY MOUTH TWICE DAILY( IN THE MORNING AND AT NOON/ MIDDAY) metformin 850 mg tablet See Rx Instructions .ROUTE .COMPLEX Qty: 180 1RF Dose Instruction: TAKE 1 TABLET BY MOUTH TWICE DAILY WITH MEALS Rx Instructions: TAKE 1 TABLET BY MOUTH TWICE DAILY WITH MEALS sildenafil [Viagra] 100 mg tablet 100 mg PO DAILY PRN (Reason: sexual activity) Qty: 30 1RF Rx Instructions: administer 30 minutes to 4 hours before activity Ozempic 2 mg/dose (8 mg/3 mL) pen injector See Rx Instructions .ROUTE .COMPLEX Qty: 3 5RF Dose Instruction: INJECT 2MG(0.75 ML) SUBCUTANEOUSLY WEEKLY Rx Instructions: INJECT 2MG(0.75 ML) SUBCUTANEOUSLY WEEKLY icosapent ethyl 1 gram capsule See Rx Instructions .ROUTE .COMPLEX Qty: 120 2RF Dose Instruction: TAKE 2 CAPSULES BY MOUTH TWICE DAILY Rx Instructions: TAKE 2 CAPSULES BY MOUTH TWICE DAILY Jardiance 25 mg tablet 25 mg PO DAILY Qty: 90 1RF celecoxib 200 mg capsule 200 mg PO BID Qty: 60 1RF Follow-up/Referrals: Clovis Levin MD [Primary Care Provider] -
--- OUTSIDE RECORDS SUMMARY | 2025-02-06 11:04 | XMS_ITS | Continuity of Care Document ---
Author Name [facility] Organization [facility] Care Team Providers Care Transformer Maker Name Role Phone [facility] Unavailable Unavailable Problems Combined list of problems from Department of Defense and Veterans [facility] facilities. It does not include entries that were removed or entered in error. Problem Status Onset Date Problem Type Date of Resolution Comments Source Diagnosis: ICD-10-CM F43.20 Adjustment disorder, unspecified Active Diagnosis [facility] Immunizations Combined list of available immunizations from the Department of [facility] and [facility] facilities. Immunization Series Date Given Administered By Site Reaction Lot Number CVX Code Drug Suction Worker Status Comments Source typhoid Vi capsular polysaccharid e vac 2017 zzLef t Arm [id number] sanofi pasteur complet ed typhoid Vi capsular polysacch aride vac 07/04/18 Given Ambulat ory Pharmac y Nauruan Encephalitis IM 2017 zzLef t Arm [id number] 134 [employer]neva complet ed [place] Encephali tis IM 07/04/18 Given Ambulat ory Pharmac y Novel Influenza-H1N 1-09,live virus,nasal 2008 [id number] 125 [employer] comple t ed Novel Influenza -[id number], live virus,praful al 09/03/09 Given Ambulat ory Pharmac y influenza virus vaccine,split 2007 [id number] 15 sanofi pasteur complet ed influenza virus vaccine,s plit 10/11/08 Given Ambulat ory Pharmac y influenza virus vaccine, live 2006 [id number] 111 [employer] comple t ed influenza virus vaccine, live 08/30/07 Given Ambulat ory Pharmac y typhoid Vi capsular polysaccharid e vac 2006 [id number] 101 sanofi pasteur complet ed typhoid Vi capsular polysacch aride vac 04/28/07 Given Ambulat ory Pharmac y tetanus, diphtheria, acellular pertu is 2006 [id number] 115 sanofi pasteur complet ed tetanus, diphtheri a, acellular pertussis 04/28/07 Given Ambulat ory Pharmac y influenza virus vaccine, whole virus 2005 zzRig ht Arm [id number] 16 sanofi pasteur complet ed influenza virus vaccine, whole virus 09/21/06 Given Ambulat ory Pharmac y influenza virus vaccine,split 2005 [id number] 15 sanofi pasteur complet ed influenza virus vaccine,s plit 09/21/06 Given Ambulat ory Pharmac y tuberculin purified protein derivative 2005 zzLef t Arm [id number] 96 Unknown complet ed Patient Tolerance : Negative Ambulat ory Pharmac y tuberculin purified protein derivative 2005 [id number] [facility] complet ed tuberculi n purified protein derivativ e 07/29/06 Given Ambulat ory Pharmac y influenza virus vaccine,split 2004 [id number] 15 sanofi pasteur complet ed influenza virus vaccine,s plit 09/16/05 Given Ambulat ory Pharmac y anthrax vaccine 2004 [id number] 24 [employer] complet ed anthrax vaccine 05/05/05 Given Ambulat ory Pharmac y typhoid Vi capsular polysaccharid e vac 2004 [id number] 101 sanofi pasteur complet ed typhoid Vi capsular polysacch aride vac 12/23/04 Given Ambulat ory Pharmac y vaccinia (smallpox) vaccine 2004 [id number] 75 [facility] complet ed vaccinia (smallpox ) vaccine 12/17/04 Given Ambulat ory Pharmac y yellow fever vaccine 2004 [id number] 37 sanofi pasteur complet ed yellow fever vaccine 12/17/04 Given Ambulat ory Pharmac y influenza virus vaccine, whole virus 2004 [id number] 16 sanofi pasteur complet ed influenza virus vaccine, whole virus 12/17/04 Given Ambulat ory Pharmac y meningococcal polysaccharid e (MPSV4) 2004 [id number] 32 sanofi pasteur complet ed meningoco ccal polysacch aride (MPSV4) 12/15/04 Given Ambulat ory Pharmac y influenza virus vaccine, whole virus 2002 [id number] 16 [facility] complet ed influenza virus vaccine, whole virus 04/29/03 Given Ambulat ory Pharmac y anthrax vaccine 2002 24 [employer] complet ed anthrax vaccine 11/20/02 Given Ambulat ory Pharmac y tuberculin purified protein derivative 2001 zzLef t Arm [id number] 96 [facility] complet ed Patient Tolerance : Negative Ambulat ory Pharmac y influenza virus vaccine, whole virus 2000 [id number] 16 [facility] complet ed influenza virus vaccine, whole virus 11/03/00 Given Ambulat ory Pharmac y typhoid vaccine, parenteral 2000 [id number] 41 [facility] complet ed typhoid vaccine, parentera l 11/03/00 Given Ambulat ory Pharmac y influenza virus vaccine, whole virus 1998 [id number] 16 [facility] complet ed influenza virus vaccine, whole virus 10/06/99 Given Ambulat ory Pharmac y anthrax vaccine 1998 [id number] 24 [employer] complet ed anthrax vaccine 05/12/99 Given Ambulat ory Pharmac y tuberculin purified protein derivative 1998 [id number] 96 [facility] complet ed Patient Tolerance : Negative Ambulat ory Pharmac y anthrax vaccine 1998 [id number] 24 [employer] complet ed anthrax vaccine 11/03/98 Given Ambulat ory Pharmac y anthrax vaccine 1997 [id number] 24 [employer] complet ed anthrax vaccine 09/24/98 Given Ambulat ory Pharmac y typhoid vaccine, parenteral 1997 [id number] 41 [facility] complet ed typhoid vaccine, parentera l 09/24/98 Given Ambulat ory Pharmac y influenza virus vaccine, whole virus [id number] 16 [facility] complet ed influenza virus vaccine, whole virus 08/25/98 Given Ambulat ory Pharmac y influenza virus vaccine, whole virus 1996 [id number] 16 [facility] complet ed influenza virus vaccine, whole virus 09/03/97 Given Ambulat ory Pharmac y tetanus-dipht h toxoids (Td) adult/adol 1996 09 complet ed tetanus-d iphth toxoids (Td) adult/ado l 04/01/97 Given Ambulat ory Pharmac y influenza virus vaccine, whole virus 1995 16 complet ed influenza virus vaccine, whole virus 08/20/96 Given Ambulat ory Pharmac y hepatitis A adult vaccine 1995 [id number] 52 [facility] complet ed hepatitis A adult vaccine 06/13/96 Given Ambulat ory Pharmac y meningococcal polysaccharid e (MPSV4) 1995 [id number] 32 [employer] complet ed meningoco ccal polysacch aride (MPSV4) 12/22/95 Given Ambulat ory Pharmac y hepatitis A adult vaccine 1995 52 complet ed hepatitis A adult vaccine 12/22/95 Given Ambulat ory Pharmac y yellow fever vaccine 1991 [id number] 37 [facility] complet ed yellow fever vaccine 03/14/92 Given Ambulat ory Pharmac y poliovirus vaccine, live, oral 1986 02 complet ed polioviru s vaccine, live, oral 04/29/87 Given Ambulat ory Pharmac y Encounters Combined list of: 1) Encounters from Department of [facility] facilities going backup to the last 18 months, not all [place] inpatient encounters are included; 2) Encounters from the Department of [facility] facilities going backup to 280 months. Location Location Details Encounter Type Encounter Number Reason For Visit Attending Provider ADM Date DC Date Status Disposition Source [facility] Outpatient Encounter [id number] Diagnos is: ICD-10- CM F43.20 Adjustm ent disorde r, unspeci fied LATAL,LOUIS PABLITO S 09/21 [facility] Outpatient Encounter [id number] Diagnos is: ICD-10- CM F43.20 Adjustm ent disorde r, unspeci fied LATAL,LOUIS PABLITO S 09/26 [facility] Outpatient Encounter [id number] 03/[address] [facility] Procedures Combined list of: 1) Procedures from [facility] facilities going back up to thelast 18 months, not all [place] non-surgical procedures are included; 2) All procedures from the Department of Defense facilities. Procedure Procedure Type Code Date Perfomer Comments Sourc e No data available for this section Ambulatory P harmacy Assessment and Plan Combined list of future care activities from Department of Defense and Veterans Affairs facilities (e.g., assessment and plan notes, appointments, orders, and referrals). Additional future care activities may be listed in the Plan of Care section. Result Assessment and Plan Date Source Assessment and Plan No data available for this section 02/06/2025 Ambulatory Pharmacy Functional Status Combined list of recent functional and cognitive assessments recorded at Department of Defense and Veterans Affairs ([place] Functional [place] Measurement (FIM) Scale: 1 = Total Assistance (Subject = 0% +), 2 = Maximal Assistance (Subject = 25% +), 3 = Moderate Assistance (Subject = 50% +), 4 = Minimal Assistance (Subject = 75% +), 5 = Supervision, 6 = Modified [place] (Device), 7 = Complete [place] (Timely, Safely). Assessment Date/Time Source Assessment Type Assessment Skill Assessment Score Assessment Details No data available for this section
[2025-02-06] MEDS: PANTOPRAZOLE SODIUM IV 40 MG VIAL IV PUSH (11:15)
[2025-02-06] MEDS: HYDROmorphone HCL INJ (*CRX) 1 MG/ML SYR 0.5 MG IV PUSH ×2 (11:15→12:57)
[2025-02-06] MEDS: SODIUM CHLORIDE 0.9% IV 1,000 ML 999 ML IV CONT (11:15)
[2025-02-06] MEDS: FAMOTIDINE 20 MG/2 ML VIAL IV PUSH (11:16)
[2025-02-06 11:34] LABS: Prothrombin Time 13.3 Seconds (11.1-14.7)
[2025-02-06 11:35] LABS: Troponin I < 0.012 ng/mL (0.000-0.034)
--- OUTSIDE RECORDS SUMMARY | 2025-02-06 12:44 | XMS_ITS | Continuity of Care Document ---
Author Name [facility] Organization [facility] Care Team Providers Care Nuclear Fuel Processing Technician Name Role Phone [facility] Unavailable Unavailable Problems Combined list of problems from Department of Defense and Veterans [facility] facilities. It does not include entries that were removed or entered in error. Problem Status Onset Date Problem Type Date of Resolution Comments Source Diagnosis: ICD-10-CM F43.20 Adjustment disorder, unspecified Active Diagnosis [facility] Immunizations Combined list of available immunizations from the Department of [facility] and [facility] facilities. Immunization Series Date Given Administered By Site Reaction Lot Number CVX Code Drug Earring Maker Status Comments Source typhoid Vi capsular polysaccharid e vac 2017 zzLef t Arm [id number] 101 sanofi pasteur complet ed typhoid Vi capsular polysacch aride vac 07/04/18 Given Ambulat ory Pharmac y Faroese Encephalitis IM 2017 zzLef t Arm [id number] 134 [employer] complet ed Faro[place] Encephali tis IM 07/04/18 Given Ambulat ory Pharmac y Novel Influenza-H1N 1-09,live virus,nasal 2008 [id number] 125 [employer] comple t ed Novel Influenza -[id number], live virus,praful al 09/03/09 Given Ambulat ory Pharmac y influenza virus vaccine,split 2007 [id number] 15 sanofi pasteur complet ed influenza virus vaccine,s plit 10/11/08 Given Ambulat ory Pharmac y influenza virus vaccine, live 2006 [id number] 111 [employer] comple t ed influenza virus vaccine, live 08/30/07 Given Ambulat ory Pharmac y typhoid Vi capsular polysaccharid e vac 2006 [id number] 101 sanofi pasteur complet ed typhoid Vi capsular polysacch aride vac 04/28/07 Given Ambulat ory Pharmac y tetanus, diphtheria, acellular pertu is 2006 [id number] 115 san[employer]i pasteur complet ed tetanus, diphtheri a, acellular pertussis 04/28/07 Given Ambulat ory Pharmac y influenza virus vaccine, whole virus 2005 zzRig ht Arm [id number] 16 sanofi pasteur complet ed influenza virus vaccine, whole virus 09/21/06 Given Ambulat ory Pharmac y influenza virus vaccine,split 2005 [id number] 15 sanofi pasteur complet ed influenza virus vaccine,s plit 09/21/06 Given Ambulat ory Pharmac y tuberculin purified protein derivative 2005 zzLef t Arm [id number] 96 Unknown complet ed Patient Tolerance : Negative Ambulat ory Pharmac y tuberculin purified protein derivative 2005 [id number] 96 [facility] complet ed tuberculi n purified protein derivativ e 07/29/06 Given Ambulat ory Pharmac y influenza virus vaccine,split 2004 [id number] 15 sanofi pasteur complet ed influenza virus vaccine,s plit 09/16/05 Given Ambulat ory Pharmac y anthrax vaccine 2004 [id number] 24 [employer] complet ed anthrax vaccine 05/05/05 Given Ambulat ory Pharmac y typhoid Vi capsular polysaccharid e vac 2004 [id number] 101 sanofi pasteur complet ed typhoid Vi capsular polysacch aride vac 12/23/04 Given Ambulat ory Pharmac y vaccinia (smallpox) vaccine 2004 [id number] 75 [facility] complet ed vaccinia (smallpox ) vaccine 12/17/04 Given Ambulat ory Pharmac y yellow fever vaccine 2004 [id number] 37 sanofi pasteur complet ed yellow fever vaccine 12/17/04 Given Ambulat ory Pharmac y influenza virus vaccine, whole virus 2004 [id number] 16 sanofi pasteur complet ed influenza virus vaccine, whole virus 12/17/04 Given Ambulat ory Pharmac y meningococcal polysaccharid e (MPSV4) 2004 [id number] 32 sanofi pasteur complet ed meningoco ccal polysacch aride (MPSV4) 12/15/04 Given Ambulat ory Pharmac y influenza virus vaccine, whole virus 2002 [id number] 16 [facility] complet ed influenza virus vaccine, whole virus 04/29/03 Given Ambulat ory Pharmac y anthrax vaccine 2002 24 [employer] complet ed anthrax vaccine 11/20/02 Given Ambulat ory Pharmac y tuberculin purified protein derivative 2001 zzLef t Arm [id number] 96 [facility] complet ed Patient Tolerance : Negative Ambulat ory Pharmac y influenza virus vaccine, whole virus 2000 [id number] 16 [facility] complet ed influenza virus vaccine, whole virus 11/03/00 Given Ambulat ory Pharmac y typhoid vaccine, parenteral 2000 [id number] 41 [facility] complet ed typhoid vaccine, parentera l 11/03/00 Given Ambulat ory Pharmac y influenza virus vaccine, whole virus 1998 [id number] 16 [facility] complet ed influenza virus vaccine, whole virus 10/06/99 Given Ambulat ory Pharmac y anthrax vaccine 1998 [id number] 24 [employer] complet ed anthrax vaccine 05/12/99 Given Ambulat ory Pharmac y tuberculin purified protein derivative 1998 2461-11 96 [facility] complet ed Patient Tolerance : Negative Ambulat ory Pharmac y anthrax vaccine 1998 [id number] 24 [employer] complet ed anthrax vaccine 11/03/98 Given Ambulat ory Pharmac y anthrax vaccine 1997 [id number] 24 [employer] complet ed anthrax vaccine 09/24/98 Given Ambulat ory Pharmac y typhoid vaccine, parenteral 1997 [id number] 41 [facility] complet ed typhoid vaccine, parentera l 09/24/98 Given Ambulat ory Pharmac y influenza virus vaccine, whole virus 19972495 [id number] 16 [facility] complet ed influenza virus vaccine, whole virus 08/25/98 Given Ambulat ory Pharmac y influenza virus vaccine, whole virus 1996 [id number] 16 [facility] complet ed influenza virus vaccine, whole virus 09/03/97 Given Ambulat ory Pharmac y tetanus-dipht h toxoids (Td) adult/adol 1996 09 complet ed tetanus-d iphth toxoids (Td) adult/ado l 04/01/97 Given Ambulat ory Pharmac y influenza virus vaccine, whole virus 1995 16 complet ed influenza virus vaccine, whole virus 08/20/96 Given Ambulat ory Pharmac y hepatitis A adult vaccine 1995 [id number] 52 [facility] complet ed hepatitis A adult vaccine 06/13/96 Given Ambulat ory Pharmac y meningococcal polysaccharid e (MPSV4) 1995 [id number] 32 [employer] complet ed meningoco ccal polysacch aride (MPSV4) 12/22/95 Given Ambulat ory Pharmac y hepatitis A adult vaccine 1995 52 complet ed hepatitis A adult vaccine 12/22/95 Given Ambulat ory Pharmac y yellow fever vaccine 1991 [id number] 37 [facility] complet ed yellow fever vaccine 03/14/92 Given Ambulat ory Pharmac y poliovirus vaccine, live, oral 1986 02 complet ed polioviru s vaccine, live, oral 04/29/87 Given Ambulat ory Pharmac y Encounters Combined list of: 1) Encounters from Department of [facility] facilities going backup to the last 18 months, not all [place] inpatient encounters are included; 2) Encounters from the Department of [facility] facilities going backup to 280 months. Location Location Details Encounter Type Encounter Number Reason For Visit Attending Provider ADM Date DC Date Status Disposition Source [facility] Outpatient Encounter [id number] Diagnos is: ICD-10- CM F43.20 Adjustm ent disorde r, unspeci fied LATAL,LOUIS PABLITO S 09/21 [facility] Outpatient Encounter [id number] Diagnos is: ICD-10- CM F43.20 Adjustm ent disorde r, unspeci fied LATAL,LOUIS PABLITO S 09/26 [facility] Outpatient Encounter [id number] 03/29 [facility] Procedures Combined list of: 1) Procedures from [facility] facilities going back up to thelast 18 months, not all [place] non-surgical procedures are included; 2) All procedures [...] at Department of Defense and [facility] Affairs ([place] Functional [place] Measurement (FIM) Scale: 1 = Total Assistance (Subject = 0% +), 2 = Maximal Assistance (Subject = 25% +), 3 = Moderate Assistance (Subject = 50% +), 4 = Minimal Assistance (Subject = 75% +), 5 = Supervision, 6 = Modified [place] (Device), 7 = Complete [place] (Timely, Safely). Assessment Date/Time Source Assessment Type Assessment Skill Assessment Score Assessment Details No data available for this section
[2025-02-06] MEDS: PIPERACILLN/TAZ 3.375GM/NS50ML 3.375 GM/50 ML BAG IVPB ×2 (12:57→18:53)
[2025-02-06 13:06] LABS: Basophils Percent Auto 0.3 % (0.2-1.2); Eosinophils Absolute Auto 0.2 K/mm3 (0-0.3); Eosinophils Percent Auto 1.4 % (0-4.4); Hematocrit 46.1 % (42.0-52.0); Hemoglobin 15.7 g/dL (14.0-18.0); Immature Granulocyte Absolute 0.06 K/mm3 (0.00-0.031); Immature Granulocyte Percent A 0.4 % (0-0.5); Lymphocytes Absolute Auto 3.04 K/mm3 (0.9-3.2); Lymphocytes Percent Auto 21.7 % (18.3-44.2); Mean Corpuscular HGB Conc 34.1 g/dl (32-36); Mean Corpuscular Hemoglobin 31.1 pg (26-34); Mean Corpuscular Volume 91.3 fl (80-100); Mean Platelet Volume 9.3 fl (7.4-10.4); Monocytes Percent Auto 7.4 % (2.6-8.5); Neutrophils Absolute Auto 9.6 K/mm3 (1.3-6.7); Neutrophils Percent Auto 68.8 % (45.5-73.1); Platelet Count Result 190 k/mm3 (150-375); Red Blood Count 5.05 M/mm3 (4.6-6.20); Red Cell Distribution Width 13.4 % (11.5-14.5)
[2025-02-06 13:17] LABS: Lactic Acid Reflex 0.7 mmol/L (0.7-2.0)
--- NOTE | 2025-02-06 13:47 | PM.IMHP ---
H&P: [facility] History of Present Illness Date/Time: 02/06/25 13:47 Chief Complaint: RLQ abdominal pain Narrative: This is a 59-year-old man with PMH of [id number] type 2 diabetes mellitus, COPD, tobacco abuse, hyperlipidemia, and IBS, who presented to the emergency department today with complaints of right lower quadrant abdominal pain x2 days. He reports an onset of mild cramping epigastric pain on Tuesday morning. He initially thought this was related to his IBS. Throughout the day, his pain migrated into the right lower quadrant. He also reports having diarrhea, but no nausea or vomiting. His pain progressed and remained constant. He stopped passing flatus or having any bowel movement last night. He also reports a fever of 100? F last night. He was concerned he may have an obstruction and tried taking magnesium citrate x2 without relief. Due to his persistent symptoms, he was evaluated by his PCP this morning. He had outpatient labs that showed WBC count is 16,000. They attempted ordered an outpatient CT scan, but had issues with insurance. Therefore he was directed to the ED for evaluation. In the ED, he was afebrile and vital signs stable. Labs showed a WBC count of 14,000. Lactic acid normal. UA negative for UTI. CT scan of the abdomen and pelvis showed a distended, fluid-filled appendix measuring 15 mm with surrounding inflammatory change, consistent with acute appendicitis. No evidence of perforation or abscess on CT. He was given a dose of IV Zosyn, IV Dilaudid, Protonix, and Pepcid in the ED. He reports relief in his abdominal pain after the Dilaudid. He also received 1 L of IV fluids. Our service was consulted for the acute appendicitis and he is now seen in the ER for surgical evaluation. No previous abdominal surgeries. He also has a history of chronic back and knee pain for which he takes narcotics as needed. He typically has pain control with NSAIDs and has not required any narcotics for quite a while. He is also diabetic and reports improvement in his hemoglobin A1c over the past year and a half after starting Jardiance and Ozempic. He is also lost 70 lb since starting those medications. Review of Systems Review of Systems: All systems reviewed & are unremarkable except as noted in HPI and below PMFSH Past Medical History Medical History Quadriceps tendonitis Degenerative joint disease of knee Viral URI with cough Throat ulcer Subacute maxillary sinusitis Streptococcus A carrier or suspected carrier SOB (shortness of breath) Seizure-like activity Obstructive sleep apnea (adult) (pediatric) Nicotine dependence, unspecified, uncomplicated Nicotine dependence, cigarettes, uncomplicated Mixed hyperlipidemia Low back sprain FHx: prostate cancer COPD (chronic obstructive pulmonary disease) Acute pharyngitis, unspecified Acute bronchitis due to other specified organisms Acute bilateral low back pain without sciatica Acute bacterial conjunctivitis of right eye New onset type 2 diabetes mellitus Knee joint effusion Left knee DJD Effusion of knee joint right Right distal ulnar fracture Morbid obesity with BMI of 40.0-44.9, adult Chronic narcotic use Arthritis STEPHANIE (obstructive sleep apnea) COPD (chronic obstructive pulmonary disease) Medial meniscus tear Depression Weight gain Acute pain of left knee Mixed hypercholesterolemia and hypertriglyceridemia Corneal abrasion, left Abnormal colonoscopy Serrated adenoma of colon Smoker Acute bronchitis Acute sinusitis Surgical History Surgical History Abscess of right thigh Family History Family History Father Hypertension Family history of elevated blood lipids Malignant neoplasm of prostate Mother Family history of malignant neoplasm of cervix Social History Social History Social History: Smoking packs per day: 0.5 Smoking cigarettes per day: 10.0 Years smoked: 18 Smoking pack-years: 9.00 Smoking status: Former smoker Tobacco type: cigarettes Second hand tobacco smoke exposure: Yes Alcohol intake: current Drinks per week: 8 Substance use: never Substance use type: does not use Lack of Transportation: No Lack of Food: Never True Current Housing: I Have Housing Concerned About Future Housing: No Difficulty Paying Gas/Electric Bills: No Difficulty Paying for Meds: No Currently Unemployed: No Education: Decline to Answer Difficulty w/ Childcare or Family Care: No Living arrangements: with family Occupation/Education: occupation Additional occupation/education comments: Refinery Operator Gender identity (if verbalized by the patient): Male Sexual Orientation (if Verbalized by the Patient): Straight or Heterosexual Spiritual care concerns: No Meds Home Medications and Allergies Home Medications ?Medication ?Instructions ?Recorded ?Confirmed ?Type ferrous sulfate 325 mg (65 mg See Rx Instructions .Route 08/06/24 02/06/25 Rx iron) tablet,delayed release .COMPLEX #90 tabs fluoxetine 10 mg capsule See Rx Instructions .Route 08/09/24 02/06/25 Rx .COMPLEX #180 caps metformin 850 mg tablet See Rx Instructions .Route 08/29/24 02/06/25 Rx .COMPLEX #180 tabs sildenafil 100 mg tablet (Viagra) 100 mg PO DAILY PRN sexual 09/03/24 02/06/25 Rx activity #30 tabs semaglutide 2 mg/dose (8 mg/3 mL) See Rx Instructions .Route 11/26/24 02/06/25 Rx subcutaneous pen injector (Ozempic) .COMPLEX #3 mL icosapent ethyl 1 gram capsule See Rx Instructions .Route 12/24/24 02/06/25 Rx .COMPLEX #120 caps celecoxib 200 mg capsule 200 mg PO BID #60 caps 01/29/25 02/06/25 Rx empagliflozin 25 mg tablet 25 mg PO DAILY #90 tabs 01/29/25 02/06/25 Rx (Jardiance) Allergies Allergy/AdvReac Type Severity Reaction Status Date / Time No Known Allergies Allergy Verified 02/06/25 08:59 Vital Signs Vital Signs - 24 hr 02/06/25 10:25 02/06/25 13:03 Temperature 97.9 F Pulse Rate 77 76 Respiratory Rate 17 14 Blood Pressure 144/88 H 123/76 Pulse Oximetry 96 99 Oxygen Delivery Room Air Exam Const: General: comfortable and no acute distress Nutritional Appearance: overweight Orientation/consciousness: patient oriented x3 HENMT: Head: normocephalic and atraumatic Ears: hearing grossly normal bilaterally Mouth: Yes moist mucous membranes Eyes: General: appearance normal, both eyes and all related structures Pupils: Equal, round and reactive pupils present Neck: Neck: normal visual inspection and full ROM Resp: Effort & Inspection: no respiratory distress Auscultation: clear to auscultation bilaterally Cardio: Rate: regular rate Rhythm: regular rhythm Peripheral pulses: Peripheral pulses 2+ throughout GI: Inspection: non-distended and no scars GI Palp: Yes Soft to palpation, Yes Tenderness to palpation present (GI) (RLQ), Yes Guarding due to palpation present (GI) (RLQ), Yes No hepatosplenomegaly present, No Hernia present and No Rebound tenderness present Percussion: Yes normal to percussion Auscultation: normal bowel sounds Skin: General skin exam: normal color Neuro: General: moves all extremities and no focal motor deficits Speech: normal speech Motor exam (neuro): 5/5 motor strength present throughout Extrem: General: normal to inspection and no edema Psych: Mental Status: mental status grossly normal Attitude: cooperative Insight: Good insight present (Psych) Judgement: Good judgement present (Psych) H&P: Results Labs Labs: Short CBC 02/06/25 02/06/25 Range/Units 10:33 12:54 WBC 16.0 H 14.0 H (4.5-10.0) K/mm3 Hgb 16.4 15.7 (14.0-18.0) g/dL Hct 48.3 46.1 (42.0-52.0) % Plt Count 213 190 (150-375) k/mm3 BMP 02/06/25 02/06/25 10:33 10:41 Sodium 135 L Cancelled Potassium 4.2 Cancelled Chloride 101 Cancelled Carbon Dioxide 26 Cancelled BUN 10 Cancelled Creatinine 0.70 Cancelled Glucose 98 Cancelled Calcium 9.3 Cancelled Cardiac Enzymes 02/06/25 Range/Units 10:41 Troponin I < 0.012 (0.000-0.034) ng/mL Liver Function 02/06/25 02/06/25 Range/Units 10:33 10:41 Total Bilirubin 1.1 Cancelled (0.2-1.3) mg/dL AST 26 Cancelled (17-59) U/L ALT 21 Cancelled (6-50) U/L Alkaline Phosphatase 56 Cancelled (38-126) U/L Albumin 4.5 Cancelled (3.5-5.1) g/dL Urine 02/06/25 Range/Units 10:39 Urine Color Yellow (Yellow) Urine Appearance Clear (Clear) Urine pH 6.5 (5.0-9.0) Ur Specific [place] 1.032 (1.001-1.035) Urine Protein 1+ H (Negative) mg/dL Urine Glucose (UA) 3+ H (Negative) mg/dL Imaging CT scan - abdomen: Radiologist's impression: ITS Impressions Abdomen/Pelvis CT 02/06/25 11:31 IMPRESSION: Acute appendicitis, as detailed above. Assessment and Plan Assessment and plan (1) Acute appendicitis: Code(s): K35.80 - Unspecified acute appendicitis Status: Acute Assessment and Plan: Patient presents with RLQ abdominal pain x [address] scan of the abdomen and pelvis showed evidence of acute uncomplicated appendicitis with no perforation or abscess. We discussed both nonoperative treatment with IV antibiotics/monitoring versus proceeding with surgery. We discussed the details of a laparoscopic appendectomy, possible open, under general anesthesia that would be done by Dr. Santiago. Description of the procedure, risks, benefits, alternatives, and expected recovery were discussed. He agrees to proceed with surgery. He was given a dose of IV Zosyn in the ED. We will add him onto the surgery schedule and keep him NPO with IV fluids pre-operatively. 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 Glucose 98 on admission. Home medications on hold for surgery. (3) COPD (chronic obstructive pulmonary disease): Code(s): J44.9 - Chronic obstructive pulmonary disease, unspecified Status: Acute (4) STEPHANIE (obstructive sleep apnea): Code(s): G47.33 - Obstructive sleep apnea (adult) (pediatric) Status: Acute (5) Tobacco abuse: Code(s): Z72.0 - Tobacco use Status: Acute Assessment and Plan: Encouraged cessation. (6) Obesity (BMI 30-39.9): Code(s): E66.9 - Obesity, unspecified Status: Acute Plan I have discussed the patient's case and plan of care with Dr. Santiago.
[2025-02-06 15:14] LABS: Glucose Point of Care 105 mg/dl (65-105)
[2025-02-06] MEDS: HYDROmorphone HCL INJ (*CRX) 1 MG/ML SYR 0.25 MG IV PUSH (15:34)
--- NOTE | 2025-02-06 15:41 | WPDANESEPPF ---
Anes - Initial Pre Proc Eval Procedure: Operation Date: 02/06/25 17:00 Proposed Procedures p Laparoscopic Appendectomy - Brodie Santiago MD Date/Time: 02/06/25 15:41 Surgeon: Brodie Santiago MD Pre Op Diagnosis: Appendicitis Patient Data Age: 59 Gender: M Height: 1.83 m Weight: 114 kg Last Vital Signs Temp 97.2 F L 02/06/25 14:18 Pulse 72 02/06/25 14:24 Resp 15 02/06/25 14:24 BP 113/71 02/06/25 14:24 Pulse Ox 100 02/06/25 14:24 O2 Del Method Room Air 02/06/25 14:18 Allergies Allergy/AdvReac Type Severity Reaction Status Date / Time No Known Allergies Allergy Verified 02/06/25 14:37 Home Medications ?Medication ?Instructions ?Recorded ?Confirmed ?Type ferrous sulfate 325 mg (65 mg See Rx Instructions .Route 08/06/24 02/06/25 Rx iron) tablet,delayed release .COMPLEX #90 tabs fluoxetine 10 mg capsule See Rx Instructions .Route 08/09/24 02/06/25 Rx .COMPLEX #180 caps metformin 850 mg tablet See Rx Instructions .Route 08/29/24 02/06/25 Rx .COMPLEX #180 tabs sildenafil 100 mg tablet (Viagra) 100 mg PO DAILY PRN sexual 09/03/24 02/06/25 Rx activity #30 tabs semaglutide 2 mg/dose (8 mg/3 mL) See Rx Instructions .Route 11/26/24 02/06/25 Rx subcutaneous pen injector (Ozempic) .COMPLEX #3 mL icosapent ethyl 1 gram capsule See Rx Instructions .Route 12/24/24 02/06/25 Rx .COMPLEX #120 caps celecoxib 200 mg capsule 200 mg PO BID #60 caps 01/29/25 02/06/25 Rx empagliflozin 25 mg tablet 25 mg PO DAILY #90 tabs 01/29/25 02/06/25 Rx (Jardiance) Laboratory Tests 02/06/25 02/06/25 02/06/25 10:33 10:39 10:41 WBC 16.0 H K/mm3 (4.5-10.0) RBC 5.29 M/mm3 (4.6-6.20) Hgb 16.4 g/dL (14.0-18.0) Hct 48.3 % (42.0-52.0) MCV 91.3 fl (80-100) MCH 31.0 pg (26-34) MCHC 34.0 g/dl (32-36) RDW 13.3 % (11.5-14.5) Plt Count 213 k/mm3 (150-375) MPV 9.3 fl (7.4-10.4) Immature Gran % (Auto) 0.4 % (0-0.5) Neut % (Auto) 67.8 % (45.5-73.1) Lymph % (Auto) 22.6 % (18.3-44.2) [place] % (Auto) 7.9 % (2.6-8.5) Eos % (Auto) 1.0 % (0-4.4) Baso % (Auto) 0.3 % (0.2-1.2) Lymph # (Auto) 3.61 H K/mm3 (0.9-3.2) [place] # (Auto) 1.3 H K/mm3 (0.1-0.6) Eos # (Auto) 0.2 K/mm3 (0-0.3) Baso # (Auto) 0.1 K/mm3 (0.0-0.1) Abs Immat Gran (auto) 0.06 H K/mm3 (0.00-0.031) Absolute Neuts (auto) 10.8 H K/mm3 (1.3-6.7) Absolute Nucleated RBC 0.000 K/mm3 (0.0-0.012) Nucleated RBC % 0.0 % (0.0-0.2) PT 13.3 Seconds (11.1-14.7) INR 1.0 APTT 28.0 Seconds (22.3-36.8) Sodium 135 L mmol/L Cancelled (137-145) Potassium 4.2 mmol/L Cancelled (3.4-5.0) Chloride 101 mmol/L Cancelled (98-107) Carbon Dioxide 26 mmol/L Cancelled (22-30) Anion Gap 8 mmol/L Cancelled (4-12) BUN 10 mg/dL Cancelled (9-20) Creatinine 0.70 mg/dL Cancelled (0.7-1.3) Estim Creat Clear Calc 129 ml/min Cancelled Estimated GFR > 60 Cancelled (59 - ) Glucose 98 mg/dL Cancelled (65-110) POC Capillary Glucose Lactic Acid Calcium 9.3 mg/dL Cancelled (8.4-10.2) Total Bilirubin 1.1 mg/dL Cancelled (0.2-1.3) AST 26 U/L Cancelled (17-59) ALT 21 U/L Cancelled (6-50) Alkaline Phosphatase 56 U/L Cancelled (38-126) Troponin I < 0.012 ng/mL (0.000-0.034) Total Protein 8.0 g/dL Cancelled (6.3-8.2) Albumin 4.5 g/dL Cancelled (3.5-5.1) Lipase 89 U/L Cancelled (23-300) Urine Color Yellow (Yellow) Urine Appearance Clear (Clear) Urine pH 6.5 (5.0-9.0) Ur Specific [place] 1.032 (1.001-1.035) Urine Protein 1+ H mg/dL (Negative) Urine Glucose (UA) 3+ H mg/dL (Negative) Urine Ketones 1+ H mg/dL (Negative) Ur Blood (Man) Negative (Negative) Urine Nitrate Negative (Negative) Urine Bilirubin Negative (Negative) Urine Urobilinogen 0.2 mg/dL (<2.0) Leukocyte Esterase Rfl Negative ARMANDO/UL (Negative) Urine RBC 0-2 /hpf (0-2) Urine WBC 0-5 /hpf (0-3) Ur Squamous Epith Cells None seen /hpf (Few) Urine Bacteria None seen /hpf Urine Casts 0-2 02/06/25 02/06/25 12:54 15:07 WBC 14.0 H K/mm3 (4.5-10.0) RBC 5.05 M/mm3 (4.6-6.20) Hgb 15.7 g/dL (14.0-18.0) Hct 46.1 % (42.0-52.0) MCV 91.3 fl (80-100) MCH 31.1 pg (26-34) MCHC 34.1 g/dl (32-36) RDW 13.4 % (11.5-14.5) Plt Count 190 k/mm3 (150-375) MPV 9.3 fl (7.4-10.4) Immature Gran % (Auto) 0.4 % (0-0.5) Neut % (Auto) 68.8 % (45.5-73.1) Lymph % (Auto) 21.7 % (18.3-44.2) [place] % (Auto) 7.4 % (2.6-8.5) Eos % (Auto) 1.4 % (0-4.4) Baso % (Auto) 0.3 % (0.2-1.2) Lymph # (Auto) 3.04 K/mm3 (0.9-3.2) [place] # (Auto) 1.0 H K/mm3 (0.1-0.6) Eos # (Auto) 0.2 K/mm3 (0-0.3) Baso # (Auto) 0.0 K/mm3 (0.0-0.1) Abs Immat Gran (auto) 0.06 H K/mm3 (0.00-0.031) Absolute Neuts (auto) 9.6 H K/mm3 (1.3-6.7) Absolute Nucleated RBC 0.000 K/mm3 (0.0-0.012) Nucleated RBC % 0.0 % (0.0-0.2) PT INR APTT Sodium Potassium Chloride Carbon Dioxide Anion Gap BUN Creatinine Estim Creat Clear Calc Estimated GFR Glucose POC Capillary Glucose 105 mg/dl (65-105) Lactic Acid 0.7 mmol/L (0.7-2.0) Calcium Total Bilirubin AST ALT Alkaline Phosphatase Troponin I Total Protein Albumin Lipase Urine Color Urine Appearance Urine pH Ur Specific [place] Urine Protein Urine Glucose (UA) Urine Ketones Ur Blood (Man) Urine Nitrate Urine Bilirubin Urine Urobilinogen Leukocyte Esterase Rfl Urine RBC Urine WBC Ur Squamous Epith Cells Urine Bacteria Urine Casts Patient hx anesthesia problems: none Family hx anesthesia problems: none Results Review: All pre-operative results and documents have been reviewed as part of the pre-operative evaluation. [facility] Past Medical History Medical History Quadriceps tendonitis Degenerative joint disease of knee Viral URI with cough Throat ulcer Subacute maxillary sinusitis Streptococcus A carrier or suspected carrier SOB (shortness of breath) Seizure-like activity Obstructive sleep apnea (adult) (pediatric) Nicotine dependence, unspecified, uncomplicated Nicotine dependence, cigarettes, uncomplicated Mixed hyperlipidemia Low back sprain FHx: prostate cancer COPD (chronic obstructive pulmonary disease) Acute pharyngitis, unspecified Acute bronchitis due to other specified organisms Acute bilateral low back pain without sciatica Acute bacterial conjunctivitis of right eye New onset type 2 diabetes mellitus Knee joint effusion Left knee DJD Effusion of knee joint right Right distal ulnar fracture Morbid obesity with BMI of 40.0-44.9, adult Chronic narcotic use Arthritis STEPHANIE (obstructive sleep apnea) COPD (chronic obstructive pulmonary disease) Medial meniscus tear Depression Weight gain Acute pain of left knee Mixed hypercholesterolemia and hypertriglyceridemia Corneal abrasion, left Abnormal colonoscopy Serrated adenoma of colon Smoker Acute bronchitis Acute sinusitis Surgical History Surgical History Abscess of right thigh Family History Family History Father Hypertension Family history of elevated blood lipids Malignant neoplasm of prostate Mother Family history of malignant neoplasm of cervix Social History Social History Social History: Smoking packs per day: 0.75 Smoking cigarettes per day: 15.0 Years smoked: 18 Smoking pack-years: 13.50 Smoking status: Current every day smoker Tobacco type: cigarettes Second hand tobacco smoke exposure: Yes Alcohol intake: current Drinks per week: 4 Alcohol use details: weekend Substance use: never Substance use type: marijuana Other substance usage details: Gummies Last use: 02/03/25 Lack of Transportation: No Lack of Food: Never True Current Housing: I Have Housing Concerned About Future Housing: No Difficulty Paying Gas/Electric Bills: No Difficulty Paying for Meds: No Currently Unemployed: No Education: Decline to Answer Difficulty w/ Childcare or Family Care: No Living arrangements: with family Occupation/Education: occupation 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 ) Neurological: alert and oriented Last oral intake: >/= 8 hours ASA classification: III Emergent: yes Anesthetic plan: proceed Anesthesia type and monitoring: general ETT and standard monitoring Results Review: All pre-operative results and documents have been reviewed as part of the pre-operative evaluation. Pt w NIDDM and good HgbA1C, still on jardiance, no GLP1 for 10 days. STEPHANIE but noncompliant w CPAP. Smoker, 1--d for 18 years, did smoke approx 845 am. Pt states typically does some pool exercises in the summer, no cp or sob. Informed Consent: The patient's anesthetic plan and its attendant risks and benefits were discussed with the patient/family/POA. Questions were solicited and answers provided to the satisfaction of the patient/family/POA.
[2025-02-06] MEDS: LACTATED RINGERS 1,000 ML 30 ML IV CONT ×2 (15:45→17:55)
--- NOTE | 2025-02-06 16:17 | WPDHPUPDATE1 ---
History and Physical Update Update Date/Time: 02/06/25 16:17 History and Physical has been reviewed, including an updated exam of the patient. There are NO changes in the patient's condition. Risks, benefits, and alternatives have been discussed and questions answered. Patient agrees to proceed with procedure.
[2025-02-06] MEDS: LIDO 1%/EPINEPHRINE 1:100,000 20 ML VIAL 30 ML INFILTRATE (16:50)
[2025-02-06] MEDS: BUPivacaine HCL 0.5% 10 ML AMP 30 ML INFILTRATE (16:51)
[2025-02-06] MEDS: KETOROLAC 30 MG/ML VIAL (*BKC) IV PUSH (17:42)
[2025-02-06 18:28] LABS: Glucose Point of Care 135 mg/dl (65-105)
--- NOTE | 2025-02-06 19:52 | ADMGEN ---
This patient, Antelmo Moreno, was admitted to [facility] Surg Room 314-02. Patient/family oriented to hospital policies and general routines including ID bracelet, bed and alarms, visiting hours, pain management, procedures, bathroom and other care routines, personal items, smoking policy, room service/diet, and visiting hours. Information on how to activate the Rapid Response Team has been discussed. Patient/Family are encouraged to report perceived risks to care and to ask questions if they do not understand what they are told or what they should do.
[2025-02-06] MEDS: LACTATED RINGERS 1,000 ML 90 ML IV CONT (20:42)
[2025-02-06] MEDS: HYDROcodone/acetaminophen (*CRX) 5-325 MG TABLET 1 TAB PO (20:44)
[2025-02-06 21:10] LABS: Glucose Point of Care 156 mg/dl (65-105)
[2025-02-06] MEDS: MELATONIN 5 MG TABLET PO (23:16)
[2025-02-07] MEDS: HYDROcodone/acetaminophen (*CRX) 5-325 MG TABLET 1 TAB PO ×2 (02:17→08:04)
[2025-02-07 03:46] VITALS: BP 142/70; PULSE 64; RESP 18; TEMP 37; O2SAT 94
[2025-02-07] MEDS: LACTATED RINGERS 1,000 ML 90 ML IV CONT (07:59)
[2025-02-07] MEDS: EMPAGLIFLOZIN 25 MG TABLET PO (08:04)
[2025-02-07] MEDS: OMEGA 3 POLYUNSAT FATTY ACIDS 1 GM CAP 2 GM PO (08:04)
[2025-02-07] MEDS: FLUoxetine HCL 10 MG CAPSULE BY MOUTH (08:07)
[2025-02-07 09:37] LABS: Glucose Point of Care 146 mg/dl (65-105)
--- NOTE | 2025-02-07 10:22 | PM.DS ---
DS: Admitting Diagnosis Discharge Date 02/07/2025 Admitting Diagnosis Acute appendicitis DS: Discharge Diagnosis Discharge Diagnosis (1) Acute appendicitis: Code(s): K35.80 - Unspecified acute appendicitis Status: Acute DS: Summary Hospital Course Reason for hospitalization: This is a 59-year-old man who presented to the emergency department with 2 days of right lower quadrant abdominal pain. Workup in the ED revealed leukocytosis and CT evidence of acute uncomplicated appendicitis. He was admitted in the setting for surgical evaluation and treatment. Hospital Course: He was started on broad-spectrum IV antibiotics. After having a discussion, decision was made to proceed with laparoscopic appendectomy. He underwent laparoscopic appendectomy by Dr. Santiago on 02/06/2025. No signs of perforation or abscess. His surgery was later in the afternoon/evening and he was monitored overnight. His diet was advanced as tolerated. His postoperative pain has been well controlled since surgery. He is tolerating activity. He is voiding without any difficulty. He is stable for discharge this morning. Time spent discussing smoking cessation with patient: 3 to 10 minutes Status at Discharge Functional status at discharge: independent ambulation Overall status at discharge: patient is progressing back to baseline Time Spent with Patient Time attestation: Total time spent providing and/or coordinating discharge services: Exam Const: General: comfortable and no acute distress Resp: Effort & Inspection: normal respiratory effort Auscultation: clear to auscultation bilaterally Cardio: Rate: regular rate Rhythm: regular rhythm GI: Inspection: non-distended and incision (incisions dry and intact) GI Palp: Yes Soft to palpation, Yes Tenderness to palpation present (GI) (incisional) and No Guarding due to palpation present (GI) Auscultation: normal bowel sounds Neuro: General: moves all extremities and no focal motor deficits Extrem: General: no calf tenderness and no edema Psych: Mental Status: mental status grossly normal Insight: Good insight present (Psych) DS: Data Data Completed and Pending Pending studies at discharge: Pending at discharge 02/06/25 17:15 Surgical [PTH] Routine Labs on day of discharge: Labs from last 24 hours 02/07/25 02/06/25 02/06/25 08:33 19:45 18:25 WBC RBC Hgb Hct MCV MCH MCHC RDW Plt Count MPV Immature Gran % (Auto) Neut % (Auto) Lymph % (Auto) [place] % (Auto) Eos % (Auto) Baso % (Auto) Lymph # (Auto) [place] # (Auto) Eos # (Auto) Baso # (Auto) Abs Immat Gran (auto) Absolute Neuts (auto) Absolute Nucleated RBC Nucleated RBC % PT INR APTT Sodium Potassium Chloride Carbon Dioxide Anion Gap BUN Creatinine Estim Creat Clear Calc Estimated GFR Glucose POC Capillary Glucose 146 H 156 H 135 H Lactic Acid Calcium Total Bilirubin AST ALT Alkaline Phosphatase Troponin I Total Protein Albumin Lipase Urine Color Urine Appearance Urine pH Ur Specific [place] Urine Protein Urine Glucose (UA) Urine Ketones Ur Blood (Man) Urine Nitrate Urine Bilirubin Urine Urobilinogen Leukocyte Esterase Rfl Urine RBC Urine WBC Ur Squamous Epith Cells Urine Bacteria Urine Casts 02/06/25 02/06/25 02/06/25 15:07 12:54 10:41 WBC 14.0 H RBC 5.05 Hgb 15.7 Hct 46.1 MCV 91.3 MCH 31.1 MCHC 34.1 RDW 13.4 Plt Count 190 MPV 9.3 Immature Gran % (Auto) 0.4 Neut % (Auto) 68.8 Lymph % (Auto) 21.7 [place] % (Auto) 7.4 Eos % (Auto) 1.4 Baso % (Auto) 0.3 Lymph # (Auto) 3.04 [place] # (Auto) 1.0 H Eos # (Auto) 0.2 Baso # (Auto) 0.0 Abs Immat Gran (auto) 0.06 H Absolute Neuts (auto) 9.6 H Absolute Nucleated RBC 0.000 Nucleated RBC % 0.0 PT INR APTT Sodium Cancelled Potassium Cancelled Chloride Cancelled Carbon Dioxide Cancelled Anion Gap Cancelled BUN Cancelled Creatinine Cancelled Estim Creat Clear Calc Cancelled Estimated GFR Cancelled Glucose Cancelled POC Capillary Glucose 105 Lactic Acid 0.7 Calcium Cancelled Total Bilirubin Cancelled AST Cancelled ALT Cancelled Alkaline Phosphatase Cancelled Troponin I < 0.012 Total Protein Cancelled Albumin Cancelled Lipase Cancelled Urine Color Urine Appearance Urine pH Ur Specific [place] Urine Protein Urine Glucose (UA) Urine Ketones Ur Blood (Man) Urine Nitrate Urine Bilirubin Urine Urobilinogen Leukocyte Esterase Rfl Urine RBC Urine WBC Ur Squamous Epith Cells Urine Bacteria Urine Casts 02/06/25 02/06/25 10:39 10:33 WBC 16.0 H RBC 5.29 Hgb 16.4 Hct 48.3 MCV 91.3 MCH 31.0 MCHC 34.0 RDW 13.3 Plt Count 213 MPV 9.3 Immature Gran % (Auto) 0.4 Neut % (Auto) 67.8 Lymph % (Auto) 22.6 [place] % (Auto) 7.9 Eos % (Auto) 1.0 Baso % (Auto) 0.3 Lymph # (Auto) 3.61 H [place] # (Auto) 1.3 H Eos # (Auto) 0.2 Baso # (Auto) 0.1 Abs Immat Gran (auto) 0.06 H Absolute Neuts (auto) 10.8 H Absolute Nucleated RBC 0.000 Nucleated RBC % 0.0 PT 13.3 INR 1.0 APTT 28.0 Sodium 135 L Potassium 4.2 Chloride 101 Carbon Dioxide 26 Anion Gap 8 BUN 10 Creatinine 0.70 Estim Creat Clear Calc 129 Estimated GFR > 60 Glucose 98 POC Capillary Glucose Lactic Acid Calcium 9.3 Total Bilirubin 1.1 AST 26 ALT 21 Alkaline Phosphatase 56 Troponin I Total Protein 8.0 Albumin 4.5 Lipase 89 Urine Color Yellow Urine Appearance Clear Urine pH 6.5 Ur Specific [place] 1.032 Urine Protein 1+ H Urine Glucose (UA) 3+ H Urine Ketones 1+ H Ur Blood (Man) Negative Urine Nitrate Negative Urine Bilirubin Negative Urine Urobilinogen 0.2 Leukocyte Esterase Rfl Negative Urine RBC 0-2 Urine WBC 0-5 Ur Squamous Epith Cells None seen Urine Bacteria None seen Urine Casts 0-2 Imaging Radiologist's impression: ITS Impressions Abdomen/Pelvis CT 02/06/25 11:31 IMPRESSION: Acute appendicitis, as detailed above. Discharge Plan Discharge Attending physician on discharge: Brodie Santiago Discharging Clinician: Angelic Retana Anticipated Discharge Date/Time: 02/07/25 10:24 Patient Disposition: Home Activity: may shower, no straining and other - see discharge instructions Diet: diabetic Wound Care Instructions: incision open to air Discharge Instructions: Surgery Discharge Instructions: No heavy lifting more than 10-15 pounds x 2-3 weeks. May shower, do not submerge in water for 2 weeks. Walk at least 3 times daily. Stairs are okay. Do not drive x 3 days or while taking narcotic pain medication. Call the office to schedule a follow-up appointment with Dr. Santiago in 2 weeks. ([phone]) Call sooner with surgical questions/concerns. Patient Instructions: Antibiotic Form Patient Language: P[place] Stand Alone Forms: General Discharge Information Follow-up/Referrals: Clovis Levin MD [Primary Care Provider] - Brodie Santiago MD [Physician] - 2 Weeks Discharge Medications: New hydrocodone-acetaminophen 5-325 mg Tablet 1 tablet PO Q6H Qty: 16 0RF Continued ferrous sulfate 325 mg (65 mg iron) tablet,delayed release (DR/EC) See Rx Instructions .ROUTE .COMPLEX Qty: 90 1RF Dose Instruction: TAKE 1 TABLET BY MOUTH DAILY Rx Instructions: TAKE 1 TABLET BY MOUTH DAILY fluoxetine 10 mg capsule See Rx Instructions .ROUTE .COMPLEX Qty: 180 1RF Dose Instruction: TAKE ONE CAPSULE BY MOUTH TWICE DAILY( IN THE MORNING AND AT NOON/ MIDDAY) Rx Instructions: TAKE ONE CAPSULE BY MOUTH TWICE DAILY( IN THE MORNING AND AT NOON/ MIDDAY) metformin 850 mg tablet See Rx Instructions .ROUTE .COMPLEX Qty: 180 1RF Dose Instruction: TAKE 1 TABLET BY MOUTH TWICE DAILY WITH MEALS Rx Instructions: TAKE 1 TABLET BY MOUTH TWICE DAILY WITH MEALS sildenafil [Viagra] 100 mg tablet 100 mg PO DAILY PRN (Reason: sexual activity) Qty: 30 1RF Rx Instructions: administer 30 minutes to 4 hours before activity Ozempic 2 mg/dose (8 mg/3 mL) pen injector See Rx Instructions .ROUTE .COMPLEX Qty: 3 5RF Dose Instruction: INJECT 2MG(0.75 ML) SUBCUTANEOUSLY WEEKLY Rx Instructions: INJECT 2MG(0.75 ML) SUBCUTANEOUSLY WEEKLY icosapent ethyl 1 gram capsule See Rx Instructions .ROUTE .COMPLEX Qty: 120 2RF Dose Instruction: TAKE 2 CAPSULES BY MOUTH TWICE DAILY Rx Instructions: TAKE 2 CAPSULES BY MOUTH TWICE DAILY Jardiance 25 mg tablet 25 mg PO DAILY Qty: 90 1RF celecoxib 200 mg capsule 200 mg PO BID Qty: 60 1RF Date of admission: 02/06/25 19:33 Primary Care Provider: Clovis Levin Admitting Provider: Brodie Santiago Attending physician on admission: Brodie Santiago Condition: Guarded Prognosis Quality VTE Prophylaxis VTE prophylaxis: mechanical ordered If No VTE Prophylaxis Answer both mechanical and pharmacologic: Reason no pharmacologic proph: low risk/not indicated (No pharmacologic prophylaxis due to surgery)
--- NOTE | 2025-02-07 10:36 | WPDANESPN ---
Anes - Prog Note Post-Op Date/Time: 02/07/25 10:36 Cardiovascular status: normal Respiratory status: normal Airway patency: baseline Mental status: baseline Vital Signs: Last Vital Signs Temp 37.0 C 02/07/25 03:46 Pulse 64 02/07/25 03:46 Resp 18 02/07/25 03:46 BP 142/70 H 02/07/25 03:46 Pulse Ox 94 02/07/25 03:46 O2 Del Method Nasal Cannula 02/06/25 20:00 O2 Flow Rate 2 02/06/25 20:00 Pain Score (VAS): 2 I/O: Intake & Output 02/06/25 02/07/25 02/07/25 23:59 07:59 15:59 Intake Total 350 1350 Balance 350 1350 Laboratory Tests 02/06/25 12:54 02/06/25 10:41 02/06/25 02/06/25 02/06/25 10:33 10:39 10:41 WBC 16.0 H RBC 5.29 Hgb 16.4 Hct 48.3 MCV 91.3 MCH 31.0 MCHC 34.0 RDW 13.3 Plt Count 213 MPV 9.3 Immature Gran % (Auto) 0.4 Neut % (Auto) 67.8 Lymph % (Auto) 22.6 [place] % (Auto) 7.9 Eos % (Auto) 1.0 Baso % (Auto) 0.3 Lymph # (Auto) 3.61 H [place] # (Auto) 1.3 H Eos # (Auto) 0.2 Baso # (Auto) 0.1 Abs Immat Gran (auto) 0.06 H Absolute Neuts (auto) 10.8 H Absolute Nucleated RBC 0.000 Nucleated RBC % 0.0 PT 13.3 INR 1.0 APTT 28.0 Sodium 135 L Cancelled Potassium 4.2 Cancelled Chloride 101 Cancelled Carbon Dioxide 26 Cancelled Anion Gap 8 Cancelled BUN 10 Cancelled Creatinine 0.70 Cancelled Estim Creat Clear Calc 129 Cancelled Estimated GFR > 60 Cancelled Glucose 98 Cancelled POC Capillary Glucose Lactic Acid Calcium 9.3 Cancelled Total Bilirubin 1.1 Cancelled AST 26 Cancelled ALT 21 Cancelled Alkaline Phosphatase 56 Cancelled Troponin I < 0.012 Total Protein 8.0 Cancelled Albumin 4.5 Cancelled Lipase 89 Cancelled Urine Color Yellow Urine Appearance Clear Urine pH 6.5 Ur Specific [place] 1.032 Urine Protein 1+ H Urine Glucose (UA) 3+ H Urine Ketones 1+ H Ur Blood (Man) Negative Urine Nitrate Negative Urine Bilirubin Negative Urine Urobilinogen 0.2 Leukocyte Esterase Rfl Negative Urine RBC 0-2 Urine WBC 0-5 Ur Squamous Epith Cells None seen Urine Bacteria None seen Urine Casts 0-2 02/06/25 02/06/25 02/06/25 12:54 15:07 18:25 WBC 14.0 H RBC 5.05 Hgb 15.7 Hct 46.1 MCV 91.3 MCH 31.1 MCHC 34.1 RDW 13.4 Plt Count 190 MPV 9.3 Immature Gran % (Auto) 0.4 Neut % (Auto) 68.8 Lymph % (Auto) 21.7 [place] % (Auto) 7.4 Eos % (Auto) 1.4 Baso % (Auto) 0.3 Lymph # (Auto) 3.04 [place] # (Auto) 1.0 H Eos # (Auto) 0.2 Baso # (Auto) 0.0 Abs Immat Gran (auto) 0.06 H Absolute Neuts (auto) 9.6 H Absolute Nucleated RBC 0.000 Nucleated RBC % 0.0 PT INR APTT Sodium Potassium Chloride Carbon Dioxide Anion Gap BUN Creatinine Estim Creat Clear Calc Estimated GFR Glucose POC Capillary Glucose 105 135 H Lactic Acid 0.7 Calcium Total Bilirubin AST ALT Alkaline Phosphatase Troponin I Total Protein Albumin Lipase Urine Color Urine Appearance Urine pH Ur Specific [place] Urine Protein Urine Glucose (UA) Urine Ketones Ur Blood (Man) Urine Nitrate Urine Bilirubin Urine Urobilinogen Leukocyte Esterase Rfl Urine RBC Urine WBC Ur Squamous Epith Cells Urine Bacteria Urine Casts 02/06/25 02/07/25 19:45 08:33 WBC RBC Hgb Hct MCV MCH MCHC RDW Plt Count MPV Immature Gran % (Auto) Neut % (Auto) Lymph % (Auto) [place] % (Auto) Eos % (Auto) Baso % (Auto) Lymph # (Auto) [place] # (Auto) Eos # (Auto) Baso # (Auto) Abs Immat Gran (auto) Absolute Neuts (auto) Absolute Nucleated RBC Nucleated RBC % PT INR APTT Sodium Potassium Chloride Carbon Dioxide Anion Gap BUN Creatinine Estim Creat Clear Calc Estimated GFR Glucose POC Capillary Glucose 156 H 146 H Lactic Acid Calcium Total Bilirubin AST ALT Alkaline Phosphatase Troponin I Total Protein Albumin Lipase Urine Color Urine Appearance Urine pH Ur Specific [place] Urine Protein Urine Glucose (UA) Urine Ketones Ur Blood (Man) Urine Nitrate Urine Bilirubin Urine Urobilinogen Leukocyte Esterase Rfl Urine RBC Urine WBC Ur Squamous Epith Cells Urine Bacteria Urine Casts Microbiology 02/06/25 12:47 Blood Blood Culture - Preliminary 02/06/25 12:54 Blood Blood Culture - Preliminary Patient Feedback: Patient satisfied with anesthetic care.
--- NOTE | 2025-02-08 07:54 | P.OP_ITS ---
Procedure Note - Detailed Date of Procedure 02/06/25 Pre-op Diagnosis Acute Appendicitis Post-op Diagnosis Same Procedure Performed Laparoscopic appendectomy Surgeon Brodie Santiago MD Anesthesia General Indications Patient is a 59-year-old gentleman presents to the emergency room with a 2 to 3 day history of worsening lower abdominal pain which localized right lower quadrant of the abdomen. [place] [id number] in the emergency room. CT scan abdomen pelvis showed a dilated inflamed appendix which was not perforated and there was no periappendiceal abscess. He is being brought to the operating now for an urgent laparoscopic appendectomy for acute appendicitis. Findings The patient acutely inflamed appendix which extended all the way back to the base of appendix with inflammatory process. The base was viable without evidence of any perforation or necrosis. No periappendiceal abscess was seen. Description of Procedure After informed consent was obtained patient brought to the operating room was placed supine position and general endotracheal anesthesia was administered. A Jameson catheter was placed decompress the bladder the abdomen was then prepped and draped usual sterile fashion. A time-out was then performed correctly identifying the patient as well as procedure to be performed. He was already on scheduled IV antibiotics. I then entered the abdomen left upper quadrant utilizing a 5mm Optiview port. Once inside the abdomen insufflated to adequate pneumoperitoneum of 15mmHg of CO2. After pneumoperitoneum had been achieved I then evaluated the right lower quadrant the abdomen there were no adhesions to obscure my view. I then placed a 12mm periumbilical trocar port as well as a 5mm suprapubic trocar port and 5mm right lower quadrant trocar port all under direct visualization. The appendix was visualized in the right lower quadrant. It had adhesions to the lateral right abdominal wall with peritoneal attachments. I could tell there was inflammation of the appendix all the way down to the base but the base did not appear to be perforated and there was no necrosis of the wall. Utilizing laparoscopic instruments through the port sites I was able to mobilize the appendix and then make a defect through the mesoappendix utilizing a laparoscopic dissected. A 45mm vascular load to the Endo-ZI stapler was then used to divide the mesoappendix. A GI load to the same stapler was then used to divide the appendix flush with the cecum. The appendix was then placed in Endo-Catch bag and brought out through the periumbilical trocar port site. The appendiceal sent off table sent to pathology for examination. I then inspected the staple line on the mesoappendix and on the appendiceal stump. Both were intact. There was no bleeding from the mesoappendix. I then irrigated out the right lower quadrant the abdomen with sterile saline solution hemostasis was excellent. I then aspirated the fluid from right lower quadrant the abdomen from the pelvis. I then removed all the trocar ports under visualization in all port sites appeared hemostatic. I then allowed the abdomen decompressed. The port sites was irrigated sterile saline solution hemostasis was good. The 12mm periumbilical trocar port fascial defect was then closed utilizing 0 Vicryl suture at the fascial level. The skin edges in all the port sites were then approximated utilizing a running subcuticular 4- 0 Monocryl suture. Incisions were then cleaned the skin glue sterile dressings were applied. The patient tolerated the procedure well no complications. All sponges, needles, and instrument counts were correct at the end procedure. EBL was _20__cc. The patient was awakened and taken to recovery in stable and satisfactory condition. Implants None Estimated Blood Loss 20 Drains No Packing No Pathology Yes (Appendix to pathology) Complications No immediate complications Condition Stable Disposition PACU [facility] Billing Surgery - Charge Forward: Surgery Billing
== END 2025-02-07 11:00 | disposition home or self-care (01) ==
LOC: ANHED 13:47 → ANHSURGERY 13:57 → ANH3MEDSUR 19:50
PROVIDERS: Emergency Medicine; Admitting Provider Surgery; Emergency Provider Registered Nurse; PCP Family Medicine; Visit Provider Surgery
PROC: 0DTJ4ZZ Resection of Appendix, Percutaneous Endoscopic Approach (ICD-10-PCS; CPT 44970; principal; 2025-02-06 17:00)
DX: K35.80 Unspecified acute appendicitis (principal); E11.65 Type 2 diabetes mellitus with hyperglycemia; J44.9 Chronic obstructive pulmonary disease, unspecified; G47.33 Obstructive sleep apnea (adult) (pediatric); K58.9 Irritable bowel syndrome, unspecified; E78.2 Mixed hyperlipidemia; E66.9 Obesity, unspecified; Z68.34 Body mass index [BMI] 34.0-34.9, adult; Z87.891 Personal history of nicotine dependence; Z79.84 Long term (current) use of oral hypoglycemic drugs; Z79.85 Long-term (current) use of injectable non-insulin antidiabetic drugs; Z79.899 Other long term (current) drug therapy
CPT/HCPCS: 44970; 36415; 74177; 80053; 81001; 82948; 83605; 83690; 84484; 85025; 85610; 85730; 87040; 88304; 93005; 96361; 96365; 96375; 96376; 99285; A9270; G0378; J1100; J1171; J1885; J2004; J2405; J2470; J2543; J2704; J3010; J7030; J7120; Q9967

== ENCOUNTER 2025-06-17 07:03 | Outpatient (CLI) | payer OTHER, SELFPAY ==
--- NOTE | ~2025-06-17 | MR_ITS ---
MRI of the lumbar spine Clinical History: Back pain Technique: Axial T2-weighted images, and sagittal T1-weighted, T2-weighted, and T2 fat-sat images wer e acquired. COMPARISON: 05/09/2022 Findings: There is no fracture or subluxation of the lumbar spine. Vertebral bodies maintain normal h eight and alignment. No bone marrow signal abnormality seen. At L1-L2, there is no disc bulge or herniation. There is mild to moderate facet hypertrophy. No spina l canal stenosis or neural foraminal narrowing. At L2-L3, there is minimal disc bulge with mild facet hypertrophy. No spinal canal stenosis or neural foraminal narrowing. At L3-L4, there is diffuse disc bulge with mild to moderate facet hypertrophy. No spinal canal stenos is. There is minimal left neural foraminal narrowing. Right neural foramen preserved. At L4-L5, there is degenerative disc narrowing with mild disc bulge and moderate facet arthropathy. N o central canal stenosis. There is moderate right neural foraminal narrowing, and minimal left neural foraminal narrowing. At L5-S1, there is degenerative distended with diffuse disc bulge and moderate facet arthropathy. The re is no geetha spinal canal stenosis. There is severe bilateral neural foraminal narrowing. Paravertebral soft tissues are unremarkable. Impression: Moderate to advanced degenerative spondylitic changes at L5-S1 in particular. Moderate degenerative spondylosis at L3-L4 and L4-L5. Reviewed, dictated and finalized at [facility]. Impression: Moderate to advanced degenerative spondylitic changes at L5-S1 in particular. Moderate degenerative spondylosis at L3-L4 and L4-L5.
== END 2025-06-17 07:04 | disposition home or self-care (01) ==
LOC: MICIMG 07:03
PROVIDERS: PCP Family Medicine; Visit Provider Nurse Practitioner Adult Health
DX: M47.896 Other spondylosis, lumbar region (principal)
CPT/HCPCS: 72148

== ENCOUNTER 2025-06-17 07:39 | Outpatient (CLI) | payer OTHER, SELFPAY ==
--- OUTSIDE RECORDS SUMMARY | 2025-06-17 07:43 | XMS_ITS | Continuity of Care Document ---
Author Name [facility] Organization [facility] Care Team Providers Care Prune Washer Name Role Phone [facility] Unavailable Unavailable Problems Combined list of problems from Department of Defense and Veterans Affairs facilities. It does not include entries that were removed or entered in error. Problem Status Onset Date Problem Type Date of Resolution Comments Source visit for: issue medical certificate Active Condition [facility] Other Physical Therapy Active Condition DoD lower back pain Active Condition DoD visit for: administrative purpose Active Condition Do D ESSENTIAL HYPERTRIGLYCERIDEMIA Active Condition DoD visit for: occupational health / fitness exam Active Condition DoD Patient Education - Dietary Active Condition DoD HERNIATED INTERVERTEBRAL DISC LUMBAR Active Condition DoD ACUTE BRONCHITIS Inactive Condition DoD UPPER RESPIRATORY INFECTION ACUTE Inactive Condition DoD Patient Education Dietary Modifying Recipies Active Condition DoD Patient Education Dietary Meal Planning Active Condition DoD Patient Education Dietary Reading Food Labels Active Condition [facility] Patient Education Dietary Changing Eating Habits Active Condition DoD ASTIGMATISM Active Condition 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 Pt is to RTC if Sx worsen or if not improving. DoD HEARING LOSS Active Condition STS lef t ear since 2000, but still H-1. Recheck next visit - discussed hearing protection DoD tobacco use Active Condition [facility] Blood Pressure Isolated Elevated Inactive Condition Will have IDMTs monitor and report DoD NO PSYCHIATRIC DIAGNOSIS OR CONDITION ON AXIS I Inactive Condition DoD PARTNER RELATIONAL PROBLEM Inactive Condition Improved - planning half-way together. DoD visit for: issue medical certificate fitness Inactive Condition DoD Preventive Medicine Estab Patient Checkup Adult 40-64 Inactive Condition DoD ADJUSTMENT DISORDER Active Condition Do D OBESITY Active Condition working on diet and exercise DoD LUMBAGO Inactive Condition DoD HYPERLIPIDEMIA Active Condition results pending DoD ASSESSMENT OF PATIENT CONDITION WORK STATUS Inactive Condition Patien t has H-1 hearing. No STS was present. Early warning shift. DoD visit for: services physical Active Condition DoD visit for: services flight physical Active Condition DoD Allergies, Adverse Reactions, Alerts Combined list of allergies from Department of Defense and Veterans Affairs facilities. It does not include entries that were removed or entered in error. Substance Category Reaction Severity Reaction type Status Date Reported Comments Source No Known Allergies Drug allergy (disorder) active 08/29/2008 [facility] Immunizations Combined list of available immunizations from the Department of Defense and Veterans Affairs facilities. Immunization Series Date Given Administered By Site Reaction Lot Number CVX Code Drug Research And Development Manager Status Comments Source typhoid Vi capsular polysaccharid e vac 2017 zzLef t Arm [id number] sanofi pasteur complet ed typhoid Vi capsular polysacch aride vac 07/04/18 Given Ambulat ory Pharmac y Russian Encephalitis IM 2017 zzLef t Arm [id number] 134 Valneva complet ed Russian Encephali tis IM 07/04/18 Given Ambulat ory Pharmac y typhoid Vi capsular polysaccharid e vaccine 1 2017 Unknown, Provider [id number] Sanofi Pasteur (PMC) complet ed typhoid Vi capsular polysacch aride vaccine DoD Russian Encephalitis vaccine for intramuscular administratio n 1 2017 Unknown, Provider [id number] 134 Valneva (BLANCA) complet ed Russian Encephali tis vaccine for intramusc ular administr ation DoD Novel Influenza-H1N 1-09,live virus,nasal 2008 [id number] [employer] comple t ed Novel Influenza -[id number], live virus,praful al 09/03/09 Given Ambulat ory Pharmac y Novel Influenza-H1N 1-09, live virus for nasal administratio n 1 2008 Unknown, Provider [id number] 125 [employer] (MED) complet ed Novel Influenza -R5L5-94, live virus for nasal administr ation [facility] influenza virus vaccine,split 2007 [id number] 15 sanofi pasteur complet ed influenza virus vaccine,s plit 10/11/08 Given Ambulat ory Pharmac y influenza virus vaccine, split virus (incl. purified surface antigen)-reti red CODE 1 2007 [id number] 15 Sanofi Pasteur (PMC) complet ed influenza virus vaccine, split virus (incl. purified surface antigen)- retired CODE [facility] influenza virus vaccine, live 2006 [id number] 111 [employer] Inc comple t ed influenza virus vaccine, live 08/30/07 Given Ambulat ory Pharmac y influenza virus vaccine, live, attenuated, for intranasal use 1 2006 [id number] 111 [employer] (MED) complet ed influenza virus vaccine, live, attenuate d, for intranasa l use DoD typhoid Vi capsular polysaccharid e vac 2006 [id number] 101 sanofi pasteur complet ed typhoid Vi capsular polysacch aride vac 04/28/07 Given Ambulat ory Pharmac y tetanus, diphtheria, acellular pertu is 2006 [id number] 115 sanofi pasteur complet ed tetanus, diphtheri a, acellular pertussis 04/28/07 Given Ambulat ory Pharmac y typhoid Vi capsular polysaccharid e vaccine 1 2006 [id number] 101 Sanofi Pasteur (PMC) complet ed typhoid Vi capsular polysacch aride vaccine DoD tetanus toxoid, reduced diphtheria toxoid, and acellular pertu is vaccine, adsorbed 1 2006 [id number] 115 Sanofi Pasteur (PMC) complet ed tetanus toxoid, reduced diphtheri a toxoid, and acellular pertussis vaccine, adsorbed DoD influenza virus vaccine, whole virus 2005 zzRig ht Arm [id number] 16 sanofi pasteur complet ed influenza virus vaccine, whole virus 09/21/06 Given Ambulat ory Pharmac y influenza virus vaccine,split 2005 [id number] 15 sanofi pasteur complet ed influenza virus vaccine,s plit 09/21/06 Given Ambulat ory Pharmac y influenza virus vaccine, split virus (incl. purified surface antigen)-reti red CODE 1 2005 [id number] 15 Sanofi Pasteur (PMC) complet ed influenza virus vaccine, split virus (incl. purified surface antigen)- retired CODE DoD influenza virus vaccine, whole virus 1 2005 Unknown, Provider [id number] 16 Sanofi Pasteur (PMC) complet ed influenza virus vaccine, whole virus DoD tuberculin purified protein derivative 2005 zzLef t Arm [id number] 96 Unknown complet ed Patient Tolerance : Negative Ambulat ory Pharmac y varicella virus vaccine 0 2005 21 () Not Given varicella virus vaccine DoD tuberculin skin test; purified protein derivative solution, intradermal 1 2005 Unknown, Provider [id number] Other (OTH) complet ed tuberculi n skin test; purified protein derivativ e solution, intraderm al DoD tuberculin purified protein derivative 2005 [id number] [facility] complet ed tuberculi n purified protein derivativ e 07/29/06 Given Ambulat ory Pharmac y influenza virus vaccine,split 2004 [id number] 15 sanofi pasteur complet ed influenza virus vaccine,s plit 09/16/05 Given Ambulat ory Pharmac y influenza virus vaccine, split virus (incl. purified surface antigen)-reti red CODE 1 2004 [id number] 15 Sanofi Pasteur (PMC) complet ed influenza virus vaccine, split virus (incl. purified surface antigen)- retired CODE DoD anthrax vaccine 2004 [id number] 24 [employer] complet ed anthrax vaccine 05/05/05 Given Ambulat ory Pharmac y anthrax vaccine 5 2004 [id number] 24 [employer] ([facility]) complet ed anthrax vaccine DoD typhoid Vi capsular polysaccharid e vac 2004 [id number] 101 sanofi pasteur complet ed typhoid Vi capsular polysacch aride vac 12/23/04 Given Ambulat ory Pharmac y typhoid Vi capsular polysaccharid e vaccine 0 2004 [id number] 101 Sanofi Pasteur (PMC) complet ed typhoid Vi capsular polysacch aride vaccine DoD vaccinia (smallpox) vaccine 2004 [id number] [employer] complet ed vaccinia (smallpox ) vaccine 12/17/04 Given Ambulat ory Pharmac y yellow fever vaccine 2004 [id number] 37 sanofi pasteur complet ed yellow fever vaccine 12/17/04 Given Ambulat ory Pharmac y influenza virus vaccine, whole virus 2004 [id number] 16 sanofi pasteur complet ed influenza virus vaccine, whole virus 12/17/04 Given Ambulat ory Pharmac y influenza virus vaccine, whole virus 0 2004 [id number] 16 Sanofi Pasteur (PMC) complet ed influenza virus vaccine, whole virus DoD yellow fever vaccine 0 2004 [id number] 37 Sanofi Pasteur (PMC) complet ed yellow fever vaccine DoD vaccinia (smallpox) vaccine 0 2004 [id number] 75 [facility] ([facility]) complet ed vaccinia (smallpox ) vaccine DoD meningococcal polysaccharid e (MPSV4) 2004 [id number] 32 sanofi pasteur complet ed meningoco ccal polysacch aride (MPSV4) 12/15/04 Given Ambulat ory Pharmac y meningococcal polysaccharid e vaccine (MPSV4) 0 2004 [id number] 32 Sanofi Pasteur (PMC) complet ed meningoco ccal polysacch aride vaccine (MPSV4) DoD influenza virus vaccine, whole virus 2002 [id number] 16 [facility] [facility] complet ed influenza virus vaccine, whole virus 04/29/03 Given Ambulat ory Pharmac y influenza virus vaccine, whole virus 0 2002 [id number] 16 [facility] influenza virus vaccine, whole virus DoD anthrax vaccine 2002 24 [employer] complet ed anthrax vaccine 11/20/02 Given Ambulat ory Pharmac y anthrax vaccine 4 2002 24 [employer] ([facility]) complet ed anthrax vaccine DoD tuberculin purified protein derivative 2001 Sabiha ibarra Arm [id number] 96 [facility] complet ed Patient Tolerance : Negative Ambulat ory Pharmac y tuberculin skin test; purified protein derivative solution, intradermal 1 2001 Unknown, Provider [id number] Leyla () complet ed tuberculi n skin test; purified protein derivativ e solution, intraderm al DoD influenza virus vaccine, whole virus 2000 [id number] 16 [employer] complet ed influenza virus vaccine, whole virus 11/03/00 Given Ambulat ory Pharmac y typhoid vaccine, inactivated 2000 [id number] 101 [facility] complet ed typhoid vaccine, inactivat ed 11/03/00 Given Ambulat ory Pharmac y influenza virus vaccine, whole virus 0 2000 [id number] 16 [facility] ed influenza virus vaccine, whole virus DoD typhoid vaccine, parenteral, other than acetone-kille d, dried 0 2000 [id number] 41 [facility] (CON) complet ed typhoid vaccine, parentera l, other than acetone-k illed, dried DoD tuberculin skin test; purified protein derivative solution, intradermal 1 1999 Unknown, Provider [id number] 96 Sanofi Pasteur (PMC) complet ed tuberculi n skin test; purified protein derivativ e solution, intraderm al DoD influenza virus vaccine, whole virus 1998 [id number] 16 [facility] complet ed influenza virus vaccine, whole virus 10/06/99 Given Ambulat ory Pharmac y influenza virus vaccine, whole virus 0 1998 [id number] 16 [facility] virus vaccine, whole virus DoD anthrax vaccine 1998 [id number] 24 [employer] complet ed anthrax vaccine 05/12/99 Given Ambulat ory Pharmac y anthrax vaccine 3 1998 [id number] 24 [facility] complet ed anthrax vaccine DoD tuberculin purified protein derivative 1998 [id number] 96 [facility] complet ed Patient Tolerance : Negative Ambulat ory Pharmac y anthrax vaccine 1998 [id number] 24 [employer] complet ed anthrax vaccine 11/03/98 Given Ambulat ory Pharmac y anthrax vaccine 2 1998 [id number] 24 [facility] complet ed anthrax vaccine DoD tuberculin skin test; purified protein derivative solution, intradermal 1 1998 Unknown, Provider [id number] 96 [facility] (CON) complet ed tuberculi n skin test; purified protein derivativ e solution, intraderm al DoD anthrax vaccine 1997 [id number] 24 [employer] complet ed anthrax vaccine 09/24/98 Given Ambulat ory Pharmac y typhoid vaccine, inactivated 1997 [id number] 101 [facility] complet ed typhoid vaccine, inactivat ed 09/24/98 Given Ambulat ory Pharmac y anthrax vaccine 1 1997 [id number] 24 [facility] complet ed anthrax vaccine DoD typhoid vaccine, parenteral, other than acetone-kille d, dried 0 1997 I2700-9 41 [facility] (CON) complet ed typhoid vaccine, parentera l, other than acetone-k illed, dried DoD influenza virus vaccine, whole virus [id number] 16 [facility] complet ed influenza virus vaccine, whole virus 08/25/98 Given Ambulat ory Pharmac y influenza virus vaccine, whole virus 0 [id number] 16 [facility] ([facility]) complet ed influenza virus vaccine, whole virus DoD influenza virus vaccine, whole virus 1996 [id number] 16 [facility] complet ed influenza virus vaccine, whole virus 09/03/97 Given Ambulat ory Pharmac y influenza virus vaccine, whole virus 0 1996 [id number] 16 [facility] complet ed influenza virus vaccine, whole virus DoD tetanus-dipht h toxoids (Td) adult/adol 1996 09 complet ed tetanus-d iphth toxoids (Td) adult/ado l 04/01/97 Given Ambulat ory Pharmac y tetanus and diphtheria toxoids, adsorbed, preservative free, for adult use (2 Lf of tetanus toxoid and 2 Lf of diphtheria toxoid) 0 1996 09 () complet ed tetanus and diphtheri a toxoids, adsorbed, preservat mallika free, for adult use (2 Lf of tetanus toxoid and 2 Lf of diphtheri a toxoid) DoD influenza virus vaccine, whole virus 1995 16 complet ed influenza virus vaccine, whole virus 08/20/96 Given Ambulat ory Pharmac y influenza virus vaccine, whole virus 0 1995 16 () complet ed influenza virus vaccine, whole virus DoD hepatitis A adult vaccine 1995 [id number] 52 [facility] complet ed hepatitis A adult vaccine 06/13/96 Given Ambulat ory Pharmac y hepatitis A vaccine, adult dosage 2 1995 [id number] 52 [facility] (CON) complet ed hepatitis A vaccine, adult dosage DoD meningococcal polysaccharid e (MPSV4) 1995 [id number] [employer] complet ed meningoco ccal polysacch aride (MPSV4) 12/22/95 Given Ambulat ory Pharmac y hepatitis A adult vaccine 1995 52 complet ed hepatitis A adult vaccine 12/22/95 Given Ambulat ory Pharmac y meningococcal polysaccharid e vaccine (MPSV4) 0 1995 [id number] 32 [employer] ([facility]) complet ed meningoco ccal polysacch aride vaccine (MPSV4) DoD hepatitis A vaccine, adult dosage 1 1995 52 () complet ed hepatitis A vaccine, adult dosage DoD yellow fever vaccine 1991 [id number] 37 [employer] complet ed yellow fever vaccine 03/14/92 Given Ambulat ory Pharmac y yellow fever vaccine 0 1991 [id number] 37 [employer] (CON) complet ed yellow fever vaccine DoD poliovirus vaccine, live, oral 1986 02 complet ed polioviru s vaccine, live, oral 04/29/87 Given Ambulat ory Pharmac y trivalent poliovirus vaccine, live, oral 0 1986 02 () complet ed trivalent polioviru s vaccine, live, oral DoD measles and rubella virus vaccine 0 1986 04 () Not Given measles and rubella virus vaccine DoD Encounters Combined list of: 1) Encounters from Department of Veterans Affairs facilities going backup to the last 18 months, not all VA inpatient encounters are included; 2) Encounters from the Department of Defense facilities going backup to 280 months. Location Location Details Encounter Type Encounter Number Reason For Visit Attending Provider ADM Date DC Date Status Disposition Source Estrada Galindo([facility] Flight Medicine) OUTPATIENT [id number] MORGAN HANSEN 09/30 Released w/o Limitations [facility] OUTPATIENT [id number] Color Vision CRISTIAN ANTHONY 10/19 Released w/o Limitations [facility] Optomet [facility]) [facility] OUTPATIENT [id number] 4 - FLY ELIEZER BALLARD 10/19 Released w/o Limitations [facility]) [employer]([facility]) OUTPATIENT [id number] audiogr CHERELLE Parks 10/10 Released w/o Limitations [employer] [facility] [employer](P ublic Health Incirli k) [employer]([facility]) OUTPATIENT [id number] Annual Flight Physica ls-PAULINE COCHRAN 10/10 Released w/o Limitations [employer] [facility](Z ZZ Flight Medicin e) [employer](Ada pt) OUTPATIENT [id number] ADAPT Intake VICKY MOON 03/30 Released w/o Limitations [employer](A dapt) [employer](Ada pt) OUTPATIENT [id number] SAAS VICKY MOON 03/31 Released w/o Limitations [employer](A dapt) [employer](Ada pt) OUTPATIENT [id number] EST F/U VICKY MOON 05/23 Released w/o Limitations [employer](A dapt) [employer](Z Flight Medicine) OUTPATIENT [id number] f/u PAULINE ALONZO 05/23 Released with Work/Duty Limitations [employer](Z Z[facility] Flight Medicin [facility]) [employer](Z Flight Medicine) OUTPATIENT [id number] Annual PHA PAULINE ALONZO 10/25 Released w/o Limitations [employer](Z ZZ Flight Medicin [facility]) [employer] [facility] OUTPATIENT [id number] KINJAL Prince 01/09 Immediate Referral [employer] [facility]) [employer] OUTPATIENT [id number] Rectal pain JEANNIE CAMACHO 02/05 Released w/o Limitations [employer] [facility] ) [employer] [place]die [place] [facility]Fam niesha Practice Non-GME FHI1) OUTPATIENT [id number] Medical Right Start SHARAD FRIEDMAN 06/12 Released w/o Limitations [employer] [place] ([facility]F amily Practic e Non-GME FHI1) [employer] [place] ([facility]Opt ometry) OUTPATIENT [id number] lost DENNIS Munoz 06/17 Released w/o Limitations [employer] [facility] [place] ([facility]O ptometr y) [employer] [facility] [place] ([facility]Nut ritional Medicine) OUTPATIENT [id number] BCIP 1 CRISTIAN MICHELLE 07/03 Released w/o Limitations [employer] [facility] [place] ([facility]N utritio nal Medicin e) [employer] [facility] [place] ([facility]Nut ritional Medicine) OUTPATIENT [id number] BCIP 2 GERMAN MICHELLEINE M 07/10 Released w/o Limitations [employer] ([facility]N utritio nal Medicin e) [employer] ([facility]) OUTPATIENT [id number] BCI f/u GERMAN MICHELLEINE M 08/29 Released w/o Limitations [employer] ([facility]N utritio nal Medicin e) [employer] ([facility] ) OUTPATIENT [id number] DAVID SARGENT 09/02 [employer] ([facility]S cott Flight Medicin e Tm) [employer] ([facility] ) OUTPATIENT [id number] S.C. Chest Congest ion RUSSELL LOVELL 09/11 Released w/o Limitations [employer] DEVYNB ([facility]S cott Flight Medicin e Tm) [employer] ([facility]Fam niesha Practice Non-GME FHI2) OUTPATIENT [id number] lower back pain JAMARI KAN Nati 10/02 Released w/o Limitations [employer] ([facility]F amily Practic e Non-GME FHI2) [employer] ([facility] ) OUTPATIENT [id number] s. c. DAVID SARGENT 10/03 Released w/o Limitations [employer] ([facility]S cott Flight Medicin e Tm) [employer] ([facility]) OUTPATIENT [id number] BCI f/u MICHELLEGERMAN JOYCESÁNCHEZ Damian 10/09 Released w/o Limitations [employer] ([facility]N utritio nal Medicin e) [employer] ([facility] ) OUTPATIENT [id number] s. cRUSSELL SORIA 10/11 Released w/o Limitations [employer] ([facility]S cott Flight Medicin e Tm) [employer] ([facility] ) OUTPATIENT [id number] Flyer PHA, 43 yo, Wears glasses , no waivers , [phone] home DAVID SARGENT 11/07 Released w/o Limitations [employer]S cott Flight Medicin e ) [facility] Medicine ) OUTPATIENT [id number] S.C med refill RUSSELL LOVELL 11/15 Released w/o Limitations [employer] [facility] Flight Medicin [facility] ) [facility] ) OUTPATIENT [id number] S.C follow up DAVID SARGENT 11/22 Released w/o Limitations [employer] Flight Medicin [facility] ) [facility] Medicine ) TELE CONSULT [phone] Fax #. and med refill DAVID SARGENT 11/28 [facility] [employer] Flight Medicin e ) [facility] Flight Medicine ) TELE CONSULT [id number] med refill DAVID SARGENT 12/05 [facility] Flight Medicin e ) [facility] Medicine ) TELE CONSULT [id number] PT ISAMAR Ma 12/10 [facility] Flight Medicin e Tm) [facility]) OUTPATIENT [id number] BCIP f/u CRISTIAN MICHELLE 12/13 Released w/o Limitations [employer] [facility]N utritio nal Medicin e) [facility] [employer]Phy sical Therapy) OUTPATIENT [id number] HERNIAT ED INTERVE RTEBRAL DISC LUMBAR STEVEN HAYS 12/24 Released w/o Limitations [employer] [facility]P hysical Therapy ) [facility]Phy sical Therapy) OUTPATIENT [id number] CHERELLE BORJA 12/31 Released w/o Limitations [employer] ([facility]P hysical Therapy ) [employer] ([facility]Phy sical Therapy) OUTPATIENT [id number] DENG GIMENEZ 01/02 Released w/o Limitations [employer] ([facility]P hysical Therapy ) [employer] ([facility] [facility])(Phy sical Therapy) OUTPATIENT [id number] SHERRILL ALFARO 01/07 Released w/o Limitations [employer] [place]P [place] [place] [employer] ([facility]Phy sical Therapy) OUTPATIENT [id number] LUCIUS REYES 01/20 Released w/o Limitations [employer] ([facility]P [facility]ical Therapy [place] [employer] ([facility]Phy sical Therapy) OUTPATIENT [id number] STEVEN HAYS 01/23 Released w/o Limitations [employer] ([facility]P [facility]ysical Therapy ) [employer] ([facility]Sco tt Flight Medicine Tm) OUTPATIENT [id number] f/u low back pain on waiver log under [employer]. MORGAN RUST 01/28 Released w/o Limitations [employer] ([facility]S cott Flight Medicin e Tm) [employer] ([facility]Phy sical Therapy) OUTPATIENT [id number] CHERELLE BORJA 01/29 Released w/o Limitations [employer] ([facility]P hysical Therapy ) [employer] ([facility]Phy sical Therapy) OUTPATIENT [id number] MARCEL MADISON 02/04 Released w/o Limitations [employer] ([facility]P hysical Therapy ) [employer] ([facility]Phy sical Therapy) OUTPATIENT [id number] SHERRILL ALFARO 02/14 Released w/o Limitations [employer] ([facility]P hysical Therapy ) [facility] [employer] ([facility]Phy sical Therapy) OUTPATIENT [id number] STEVEN HAYS 02/26 Released w/o Limitations [facility] [employer] ([facility]P hysical Therapy ) [facility] [employer] ([facility] OUTPATIENT [id number] BCIP f/u CRISTIAN MICHELLE 02/26 Released w/o Limitations [employer] ([facility]N utritio nal Medicin e) [facility] [employer] ([facility]Phy sical Therapy) OUTPATIENT [id number] SHERRILL ALFARO 03/06 Released w/o Limitations [employer] ([facility]P hysical Therapy ) [facility] [employer] [facility] [employer] [facility]) OUTPATIENT [id number] s.c RTFS TORRIE MORALES 04/04 Released with Work/Duty Limitations [employer] ([facility]S cott [facility] Medicin e Tm) [facility] [employer] [facility])([facility]) OUTPATIENT [id number] BCIP f/u CRISTIAN MICHELLE 04/21 Released w/o Limitations [facility] [employer] ([facility]N utritio nal Medicin e) [facility] [employer] [facility])([facility] ) OUTPATIENT [id number] cold SX TORRIE MORALES 04/28 Sick at Home/Quarter s [facility] [employer] ([facility]S cott [facility] Medic[facility] Tm) [facility] [employer] [facility])([facility]) TELE CONSULT [id number] Retirem ent Physica DENNIS Holliday 04/28 [facility] [employer] ([facility]S cott [facility] Medic[facility] Tm) [facility] [employer] [facility]) TELE CONSULT [id number] Retirem ent DENNIS Flores 05/05 [facility] [employer] [facility]S cott [facility] Tm) [employer] [facility] ) OUTPATIENT [id number] S.C. RTFS CHAUHAN, JEANNIE Beauchamp 06/06 Released with Work/Duty Limitations [address] [place] [address] [facility])(S cott [facility] Medic[facility] Tm) [address] [place] [address] [facility])([facility] ) TELE CONSULT [id number] F/U labs ETHAN FARNSWORTH 06/[address] [place] [address] [facility])(S cott [facility] Medic[facility] Tm) [address] [place] [address])([facility] ) OUTPATIENT [id number] Ret PHA CHAUHAN, JEANNIE Beauchamp 07/03 Released w/o Limitations [address] [place] [address] Group [facility])(S cott Flight Medicin e Tm) [address] [place] [address] [facility])([facility]) DENTAL [id number] exam/pr o CARLIE TRIMBLE 07/29 Released w/o Limitations [address] [place] [address])(D ental Clinic) [facility] Outpatient Encounter [id number] 1 03/29 [facility] Procedures Combined list of: 1) Procedures from Department of Veterans Affairs facilities going back up to thelast 18 months, not all VA non-surgical procedures are included; 2) All procedures from the Department of Defense facilities. Procedure Procedure Type Code Date Perfomer Comments Sourc e No data available for this section [facility] INDIVIDUAL PSYCHOTHERAPY, INSIGHT ORIENTED, BEHAVIOR MODIFYING AND/OR SUPPORTIVE, IN AN OFFICE OR OUTPATIENT FACILITY, APPROXIMATELY 45 TO 50 MINUTES [id number] WITH THE PATIENT 007 [facility] HEALTH AND BEHAVIOR INTERVENTION, EACH 15 MINUTES, [id number]; GROUP (2 OR MORE PATIENTS) 007 [facility] PSYCHIATRIC DIAGNOSTIC INTERVIEW EXAMINATION 007 [facility] SCREENING TEST OF VISUAL ACUITY, QUANTITATIVE, BILATERAL 006 [facility] THERAPEUTIC PROCEDURE, 1 OR MORE AREAS, EACH 15 MINUTES; THERAPEUTIC EXERCISES TO DEVELOP STRENGTH AND ENDURANCE, RANGE OF MOTION AND FLEXIBILITY 004 [facility] OPHTHALMOLOGICAL SERVICES: MEDICAL EXAMINATION AND EVALUATION WITH INITIATION OF DIAGNOSTIC AND TREATMENT PROGRAM; COMPREHENSIVE, NEW PATIENT, 1 OR MORE VISITS 004 [facility] SCREENING TEST OF VISUAL ACUITY, QUANTITATIVE, BILATERAL 005 [facility] COLOR VISION EXAMINATION, EXTENDED, EG, ANOMALOSCOPE OR EQUIVALENT 005 [facility] SCREENING TEST OF VISUAL ACUITY, QUANTITATIVE, BILATERAL 004 [facility] SCREENING TEST OF VISUAL ACUITY, QUANTITATIVE, BILATERAL 002 [facility] SCREENING TEST OF VISUAL ACUITY, QUANTITATIVE, BILATERAL 001 [facility] ANALYSIS OF CLINICAL DATA STORED IN COMPUTERS (EG, ECGS, BLOOD PRESSURES, HEMATOLOGIC DATA) [facility] TELE ASSESS & MGT SRV PROV QUAL NONPHYS HLTH CARE PRO TO EST PAT,PARENT,GUARD NOT ORIG REL ASSESS & MGT SRV PROV W/IN PREV 7 DAYS NOR LEAD ASSESS & MGT SRV/PX W/IN NXT 24 HR/SOON APT;5-10 MIN MED DIS 009 [facility] SELF-CARE/HOME MANAGMENT TRAIN (EG,ACT OF DAILY LIVING (ADL) &COMPENSAT TRAIN,MEAL PREPARATION,SAFETY PROCS,AND INSTRUCT IN USE OF ASST TECHNOLOGY DEV/ADPT EQUIP) DIR ONE-ON-ONE CONT,EA 15 MINUTES 009 [facility] MEDICAL NUTRITION THERAPY; RE-ASSESSMENT AND INTERVENTION, INDIVIDUAL, [id number] WITH THE PATIENT, EACH 15 MINUTES [facility] THERAPEUTIC PROCEDURE, 1 OR MORE AREAS, EACH 15 MINUTES; THERAPEUTIC EXERCISES TO DEVELOP STRENGTH AND ENDURANCE, RANGE OF MOTION AND FLEXIBILITY [facility] APPLICATION OF A MODALITY TO 1 OR MORE AREAS; HOT OR COLD PACKS 009 [facility] APPLICATION OF A MODALITY TO 1 OR MORE AREAS; HOT OR COLD PACKS 009 [facility] APPLICATION OF A MODALITY TO 1 OR MORE AREAS; HOT OR COLD PACKS 009 [facility] SELF-CARE/HOME MANAGMENT TRAIN (EG,ACT OF DAILY LIVING (ADL) &COMPENSAT TRAIN,MEAL PREPARATION,SAFETY PROCS,AND INSTRUCT IN USE OF ASST TECHNOLOGY DEV/ADPT EQUIP) DIR ONE-ON-ONE CONT,EA 15 MINUTES 009 [facility] APPLICATION OF A MODALITY TO 1 OR MORE AREAS; HOT OR COLD PACKS 009 [facility] APPLICATION OF A MODALITY TO 1 OR MORE AREAS; HOT OR COLD PACKS 009 [facility] APPLICATION OF A MODALITY TO 1 OR MORE AREAS; HOT OR COLD PACKS 009 [facility] APPLICATION OF A MODALITY TO 1 OR MORE AREAS; HOT OR COLD PACKS [facility] APPLICATION OF A MODALITY TO 1 OR MORE AREAS; ELECTRICAL STIMULATION (UNATTENDED) 009 [facility] MEDICAL NUTRITION THERAPY; RE-ASSESSMENT AND INTERVENTION, INDIVIDUAL, [id number] WITH THE PATIENT, EACH 15 MINUTES [facility] COLOR VISION EXAMINATION, EXTENDED, EG, ANOMALOSCOPE OR EQUIVALENT [facility] PSYCHIATRIC DIAGNOSTIC INTERVIEW EXAMINATION [facility] MEDICAL NUTRITION THERAPY; RE-ASSESSMENT AND INTERVENTION, INDIVIDUAL, [id number] WITH THE PATIENT, EACH 15 MINUTES 008 [facility] MEDICAL NUTRITION THERAPY; RE-ASSESSMENT AND INTERVENTION, INDIVIDUAL, [id number] WITH THE PATIENT, EACH 15 MINUTES [facility] MEDICAL NUTRITION THERAPY; GROUP (2 OR MORE INDIVIDUAL(S)), EACH 30 MINUTES [facility] MEDICAL NUTRITION THERAPY; GROUP (2 OR MORE INDIVIDUAL(S)), EACH 30 MINUTES [facility] FITTING OF SPECTACLES, EXCEPT FOR APHAKIA; MONOFOCAL [facility] UNLISTED AMBULANCE SERVICE 007 [facility] Non-Physician Phone Call To Patient/Provider Brief (5-10min) Non-Physician Phone Call To Patient/Provider Brief (5-10min) [id number] DENNIS BAI [facility] Training And Self-Care Skills Training And Self-Care Skills [id number] 009 SHERRILL ALFARO [facility] Physical Therapy: ___ Se ion Segments, 15 Minutes Each Physical Therapy: ___ Session Segments, 15 Minutes Each [id number] 009 SHERRILL ALFARO [facility] Medical Nutrition Therapy Re-a e ment, Intervention Medical Nutrition Therapy Re-assessment, Intervention [id number] 009 CRISTIAN MICHELLE [facility] Physical Therapy: ___ Se ion Segments, 15 Minutes Each Physical Therapy: ___ Session Segments, 15 Minutes Each [id number] 009 STEVEN HAYS [facility] Modalities Heat Hot Packs Modalities Heat Hot Packs 07680 009 SHERRILL ALFARO [facility] Modalities Electrical Stimulation Unattended Modalities Electrical Stimulation Unattended 52156 009 SHERRILL ALFARO [facility] Medical Nutrition Therapy Re-a e ment, Intervention Medical Nutrition Therapy Re-assessment, Intervention [id number] CRISTIAN MICHELLE [facility] Modalities Heat Hot Packs Modalities Heat Hot Packs 30557 009 MARCEL MADISON [facility] Modalities Electrical Stimulation Unattended Modalities Electrical Stimulation Unattended 39126 009 MARCEL MADISON [facility] Modalities Heat Hot Packs Modalities Heat Hot Packs 09211 009 CHERELLE BORJA C [facility] Modalities Electrical Stimulation Unattended Modalities Electrical Stimulation Unattended 79753 009 BORJALINACHERELLE C DoD Phys Therapy Education Self Care Training - Per 15 Minutes Phys Therapy Education Self Care Training - Per 15 Minutes [id number] 009 STEVEN HAYS [facility] Modalities Electrical Stimulation Unattended Modalities Electrical Stimulation Unattended 19683 009 STEVEN HAYS [facility] Modalities Electrical Stimulation Unattended Modalities Electrical Stimulation Unattended 61273 009 LUCIUS REYES [facility] Modalities Heat Hot Packs Modalities Heat Hot Packs 67263 009 LUCIUS REYES [facility] Modalities Electrical Stimulation Unattended Modalities Electrical Stimulation Unattended 52905 009 SHERRILL ALFARO [facility] Modalities Heat Hot Packs Modalities Heat Hot Packs 99313 009 SHERRILL ALFARO [facility] Physical Therapy: ___ Se ion Segments, 15 Minutes Each Physical Therapy: ___ Session Segments, 15 Minutes Each [id number] 009 DENG GIMENEZ [facility] Modalities Heat Hot Packs Modalities Heat Hot Packs 45536 009 DENG GIMENEZ [facility] Modalities Electrical Stimulation Unattended Modalities Electrical Stimulation Unattended 38595 009 DENG GIMENEZ [facility] Physical Therapy: ___ Se ion Segments, 15 Minutes Each Physical Therapy: ___ Session Segments, 15 Minutes Each [id number] 009 CHERELLE BORJA Do[facility] Modalities Heat Hot Packs Modalities Heat Hot Packs 71412 009 CHERELLE BORJA C [facility] Modalities Electrical Stimulation Unattended Modalities Electrical Stimulation Unattended 30274 009 CHERELLE BORJA [facility] Modalities Traction Modalities Traction [phone] 0 009 STEVEN HAYS Modalities Electrical Stimulation Unattended Modalities Electrical Stimulation Unattended 84022 009 STEVEN HAYS Physical Medicine Physical Therapy Evaluation Physical Medicine Physical Therapy Evaluation [id number] 009 STEVEN HAYS Visual Function Screening Visual Function Screening [id number] 009 DAVID SARGENT Extensive Color Vision Testing Extensive Color Vision Testing [id number] 009 DAVID SARGENT Threshold Audiogram (Pure Tone) Threshold Audiogram (Pure Tone) 55948 009 DAVID SARGENT Psychiatric Evaluation Comprehensive Examination Psychiatric Evaluation Comprehensive Examination 58544 008 SHEA ARMAS [facility] Medical Nutrition Therapy Re-a e ment, Intervention Medical Nutrition Therapy Re-assessment, Intervention 55337 008 CRISTIAN MICHELLE [facility] Medical Nutrition Therapy Group (2 or More Individual(s)) Medical Nutrition Therapy Group (2 or More Individual(s)) 46693 008 CRISTIAN MICHELLE [facility] Medical Nutrition Therapy Group (2 or More Individual(s)) Medical Nutrition Therapy Group (2 or More Individual(s)) 13491 008 CRISTIAN MICHELLE [facility] Spectacles Services Fitting Monofocals (Not For Aphakia) Spectacles Services Fitting Monofocals (Not For Aphakia) 43541 008 DENNIS BARAJAS [facility] Determination Of Refractive State Determination Of Refractive State [phone] DENNIS BARAJAS Ophthalmological New Patient Start Intermediate Level Care Ophthalmological New Patient Start Intermediate Level Care [id number] 008 DENNIS BARAJAS [facility] Social Work Individual Outpatient Counseling 45-50 Minutes Social Work Individual Outpatient Counseling 45-50 Minutes [id number] [id number] VICKY MOON Health And Behav Intervention, Each 15 Min Grp (2 Or More) Health And Behav Intervention, Each 15 Min Grp (2 Or More) 29734 007 VICKY MOON Psychiatric Evaluation Comprehensive Examination Psychiatric Evaluation Comprehensive Examination [id number] 007 VICKY MOON [facility] Extensive Color Vision Testing Extensive Color Vision Testing [phone] CRISTIAN ANTHONY [facility] Social History Combined list of available smoking, tobacco, and other social history from Department of Defense and Veterans Affairs facilities. Social History Type Response Date Comment Sour e This section is an empty social history section. [facility] Assessment and Plan Combined list of future care activities from Department of Defense and Veterans Affairs facilities (e.g., assessment and plan notes, appointments, orders, and referrals). Additional future care activities may be listed in the Plan of Care section. Result Assessment and Plan Date Source Assessment and Plan No data available for this section 06/17/2025 Ambulatory Pharmacy Functional Status Combined list of recent functional and cognitive assessments recorded at Department of Defense and Veterans Affairs (VA).VA Functional Freedom Measurement (FIM) Scale: 1 = Total Assistance (Subject = 0% +), 2 = Maximal Assistance (Subject = 25% +), 3 = Moderate Assistance (Subject = 50% +), 4 = Minimal Assistance (Subject = 75% +), 5 = Supervision, 6 = Modified Freedom (Device), 7 = Complete Freedom (Timely, Safely). Assessment Date/Time Source Assessment Type Assessment Skill Assessment Score Assessment Details No data available for this section
[2025-06-17 08:04] LABS: Hematocrit 51.4 % (42.0-52.0); Hemoglobin 17.1 g/dL (14.0-18.0); Immature Granulocyte Percent A 0.3 % (0-0.5); Lymphocytes Absolute Auto 3.69 K/mm3 (0.9-3.2); Mean Corpuscular HGB Conc 33.3 g/dl (32-36); Mean Corpuscular Hemoglobin 31.1 pg (26-34); Mean Corpuscular Volume 93.5 fl (80-100); Nucleated Red Blood Cells Absolute Auto 0.000 K/mm3 (0.0-0.012); Nucleated Red Blood Cells Perc 0.0 % (0.0-0.2); Platelet Count Result 273 k/mm3 (150-375); Red Blood Count 5.50 M/mm3 (4.6-6.20); White Blood Count 10.3 K/mm3 (4.5-10.0)
[2025-06-17 08:23] LABS: Alanine Aminotransferase 21 U/L (6-50); Albumin Level 4.5 g/dL (3.5-5.1); Alkaline Phosphatase 85 U/L (38-126); Anion Gap 7 mmol/L (4-12); Aspartate Amino Transferase 29 U/L (17-59); Bilirubin,Total 0.4 mg/dL (0.2-1.3); Blood Urea Nitrogen 21 mg/dL (9-20); Calcium 9.7 mg/dL (8.4-10.2); Carbon Dioxide 25 mmol/L (22-30); Chloride 106 mmol/L (98-107); Cholesterol 236 mg/dL (0-200); Estimated Glomerular Filt Rate > 60; Glucose 103 mg/dL (65-110); HDL Direct 38 mg/dL; Potassium 4.3 mmol/L (3.4-5.0); Sodium 138 mmol/L (137-145); Total Protein 7.4 g/dL (6.3-8.2); Triglycerides 406 mg/dL (<150)
[2025-06-17 08:36] LABS: Hemoglobin A1C 5.4 % (<5.7)
[2025-06-17 08:58] LABS: Prostate Specific Antigen 1.4 ng/mL (< OR = 4.0)
[2025-06-17 13:19] LABS: MALB Creatinine Ratio 16.4 mg/g (0-30)
== END 2025-06-17 07:40 | disposition home or self-care (01) ==
PROVIDERS: PCP Family Medicine; Visit Provider Student in an Organized Health Care Education/Training Program
DX: E11.65 Type 2 diabetes mellitus with hyperglycemia (principal); Z12.5 Encounter for screening for malignant neoplasm of prostate; I10 Essential (primary) hypertension; E78.5 Hyperlipidemia, unspecified
CPT/HCPCS: 36415; 80053; 80061; 82043; 83036; 84153; 85025; G0103

== ENCOUNTER 2025-10-01 03:13 | Day surgery (SDC) | payer OTHER, SELFPAY ==
[2025-09-12 15:11] VITALS: BMI 30.8
[2025-10-01 11:11] VITALS: BP 141/78; PULSE 81; RESP 16; TEMP 36.1; O2SAT 97; BMI 32.0
[2025-10-01] MEDS: LACTATED RINGERS 1,000 ML 150 ML IV CONT (11:22)
--- NOTE | 2025-10-01 11:54 | WPDANESEPPF ---
Anes - Initial Pre Proc Eval Procedure: Operation Date: 10/01/25 13:00 Proposed Procedures p Screening Colonoscopy - Maikel Garcia MD Date/Time: 10/01/25 11:54 Surgeon: Maikel Garcia MD Pre Op Diagnosis: Encounter for screening for malignant neoplasm of Patient Data Age: 59 Gender: M Height: 1.88 m Weight: 113.1 kg Last Vital Signs Temp 36.1 C L 10/01/25 11:11 Pulse 81 10/01/25 11:11 Resp 16 10/01/25 11:11 BP 141/78 H 10/01/25 11:11 Pulse Ox 97 10/01/25 11:11 O2 Del Method Room Air 10/01/25 11:11 Allergies Allergy/AdvReac Type Severity Reaction Status Date / Time No Known Allergies Allergy Verified 10/01/25 11:10 Home Medications ?Medication ?Instructions ?Recorded ?Confirmed ?Type sildenafil 100 mg tablet (Viagra) 100 mg PO DAILY PRN sexual 06/17/25 09/12/25 Rx activity #30 tabs empagliflozin 25 mg tablet 25 mg PO DAILY #90 tabs 07/10/25 10/01/25 Rx (Jardiance) semaglutide 2 mg/dose (8 mg/3 mL) See Rx Instructions .Route 07/12/25 10/01/25 Rx subcutaneous pen injector (Ozempic) .COMPLEX #3 mL fluoxetine 10 mg capsule See Rx Instructions .Route 08/13/25 10/01/25 Rx .COMPLEX #180 caps metformin 850 mg tablet See Rx Instructions .Route 08/13/25 10/01/25 Rx .COMPLEX #180 tabs icosapent ethyl 1 gram capsule See Rx Instructions .Route 09/13/25 10/01/25 Rx .COMPLEX #360 caps celecoxib 200 mg capsule 200 mg PO BID #60 caps 09/16/25 10/01/25 Rx Laboratory Tests 10/01/25 11:24 POC Capillary Glucose 114 H mg/dl (65-105) Patient hx anesthesia problems: none Family hx anesthesia problems: none Results Review: All pre-operative results and documents have been reviewed as part of the pre-operative evaluation. [facility] Past Medical History Medical History Acute appendicitis Quadriceps tendonitis Degenerative joint disease of knee Viral URI with cough Throat ulcer Subacute maxillary sinusitis Streptococcus A carrier or suspected carrier SOB (shortness of breath) Seizure-like activity Obstructive sleep apnea (adult) (pediatric) Nicotine dependence, unspecified, uncomplicated Nicotine dependence, cigarettes, uncomplicated Mixed hyperlipidemia Low back sprain FHx: prostate cancer COPD (chronic obstructive pulmonary disease) Acute pharyngitis, unspecified Acute bronchitis due to other specified organisms Acute bilateral low back pain without sciatica Acute bacterial conjunctivitis of right eye New onset type 2 diabetes mellitus Knee joint effusion Left knee DJD Effusion of knee joint right Right distal ulnar fracture Morbid obesity with BMI of 40.0-44.9, adult Chronic narcotic use Arthritis STEPHANIE (obstructive sleep apnea) COPD (chronic obstructive pulmonary disease) Medial meniscus tear Depression Weight gain Acute pain of left knee Mixed hypercholesterolemia and hypertriglyceridemia Corneal abrasion, left Abnormal colonoscopy Serrated adenoma of colon Smoker Acute bronchitis Acute sinusitis Surgical History Surgical History History of laparoscopic appendectomy 02/06/[address] Santiago Abscess of right thigh Family History Family History Father Hypertension Family history of elevated blood lipids Malignant neoplasm of prostate Mother Family history of malignant neoplasm of cervix Social History Social History (Updated 10/01/25 @ 11:54 by Amilcar Zazueta DO) Social History: Smoking packs per day: 0.75 Smoking cigarettes per day: 15.0 Years smoked: 18 Smoking pack-years: 13.50 Smoking status: Current every day smoker Tobacco type: cigarettes Second hand tobacco smoke exposure: Yes Alcohol intake: current Alcohol use details: 2/day Substance use: current Substance use type: marijuana Other substance usage details: GUMMIES Last use: 02/03/25 Lack of Transportation: No Lack of Food: Never True Current Housing: I Have Housing Concerned About Future Housing: No Difficulty Paying Gas/Electric Bills: No Difficulty Paying for Meds: No Currently Unemployed: No Education: Master's Degree or Higher Difficulty w/ Childcare or Family Care: No Living arrangements: with family Occupation/Education: occupation Additional occupation/education comments: [employer] Gender identity (if verbalized by the patient): Male Sexual Orientation (if Verbalized by the Patient): Straight or Heterosexual Spiritual care concerns: No Anes - Eval Final PreProcedure Day of Procedure 12/02/25 11:54 Patient weight: obese Heart: regular rate and rhythm Lungs: clear to auscultation Airway: Mallampati scale class 1 Neurological: alert and oriented Last oral intake: >/= 8 hours ASA classification: III Emergent: no Anesthetic plan: proceed Anesthesia type and monitoring: general GIVS and standard monitoring Results Review: All pre-operative results and documents have been reviewed as part of the pre-operative evaluation. Informed Consent: The patient's anesthetic plan and its attendant risks and benefits were discussed with the patient/family/POA. Questions were solicited and answers provided to the satisfaction of the patient/family/POA.
--- NOTE | 2025-10-01 12:19 | PM.IMHP2 ---
H&P: HPI History of Present Illness Date/Time: 10/01/25 12:19 Chief Complaint: History of colon polyps Narrative: The patient has a history of colonic polyps, the last colonoscopy was 5 years ago. Review of Systems Review of Systems: All systems reviewed & are unremarkable except as noted in HPI and below PMFSH Past Medical History Medical History Acute appendicitis Quadriceps tendonitis Degenerative joint disease of knee Viral URI with cough Throat ulcer Subacute maxillary sinusitis Streptococcus A carrier or suspected carrier SOB (shortness of breath) Seizure-like activity Obstructive sleep apnea (adult) (pediatric) Nicotine dependence, unspecified, uncomplicated Nicotine dependence, cigarettes, uncomplicated Mixed hyperlipidemia Low back sprain FHx: prostate cancer COPD (chronic obstructive pulmonary disease) Acute pharyngitis, unspecified Acute bronchitis due to other specified organisms Acute bilateral low back pain without sciatica Acute bacterial conjunctivitis of right eye New onset type 2 diabetes mellitus Knee joint effusion Left knee DJD Effusion of knee joint right Right distal ulnar fracture Morbid obesity with BMI of 40.0-44.9, adult Chronic narcotic use Arthritis STEPHANIE (obstructive sleep apnea) COPD (chronic obstructive pulmonary disease) Medial meniscus tear Depression Weight gain Acute pain of left knee Mixed hypercholesterolemia and hypertriglyceridemia Corneal abrasion, left Abnormal colonoscopy Serrated adenoma of colon Smoker Acute bronchitis Acute sinusitis Surgical History Surgical History History of laparoscopic appendectomy 02/06/[address] Santiago Abscess of right thigh Family History Family History Father Hypertension Family history of elevated blood lipids Malignant neoplasm of prostate Mother Family history of malignant neoplasm of cervix Social History Social History (Updated 10/01/25 @ 11:54 by Amilcar Zazueta DO) Social History: Smoking packs per day: 0.75 Smoking cigarettes per day: 15.0 Years smoked: 18 Smoking pack-years: 13.50 Smoking status: Current every day smoker Tobacco type: cigarettes Second hand tobacco smoke exposure: Yes Alcohol intake: current Alcohol use details: 2/day Substance use: current Substance use type: marijuana Other substance usage details: GUMMIES Last use: 02/03/25 Lack of Transportation: No Lack of Food: Never True Current Housing: I Have Housing Concerned About Future Housing: No Difficulty Paying Gas/Electric Bills: No Difficulty Paying for Meds: No Currently Unemployed: No Education: Master's Degree or Higher Difficulty w/ Childcare or Family Care: No Living arrangements: with family Occupation/Education: occupation Additional occupation/education comments: [employer] Gender identity (if verbalized by the patient): Male Sexual Orientation (if Verbalized by the Patient): Straight or Heterosexual Spiritual care concerns: No Meds Home Medications and Allergies Home Medications ?Medication ?Instructions ?Recorded ?Confirmed ?Type sildenafil 100 mg tablet (Viagra) 100 mg PO DAILY PRN sexual 06/17/25 09/12/25 Rx activity #30 tabs empagliflozin 25 mg tablet 25 mg PO DAILY #90 tabs 07/10/25 10/01/25 Rx (Jardiance) semaglutide 2 mg/dose (8 mg/3 mL) See Rx Instructions .Route 07/12/25 10/01/25 Rx subcutaneous pen injector ([employer]) .COMPLEX #3 mL fluoxetine 10 mg capsule See Rx Instructions .Route 08/13/25 10/01/25 Rx .COMPLEX #180 caps metformin 850 mg tablet See Rx Instructions .Route 08/13/25 10/01/25 Rx .COMPLEX #180 tabs icosapent ethyl 1 gram capsule See Rx Instructions .Route 09/13/25 10/01/25 Rx .COMPLEX #360 caps celecoxib 200 mg capsule 200 mg PO BID #60 caps 09/16/25 10/01/25 Rx Allergies Allergy/AdvReac Type Severity Reaction Status Date / Time No Known Allergies Allergy Verified 10/01/25 11:10 Vital Signs Vital Signs - 24 hr 10/01/25 11:11 Temperature 97 F L Pulse Rate 81 Respiratory Rate 16 Blood Pressure 141/78 H Pulse Oximetry 97 Oxygen Delivery Room Air Exam Const: General: cooperative and healthy appearing Resp: Effort & Inspection: normal respiratory effort and able to speak in complete sentences Auscultation: clear to auscultation bilaterally Cardio: Rate: regular rate Rhythm: regular rhythm GI: Inspection: normal to inspection GI Palp: No No hepatosplenomegaly present Auscultation: normal bowel sounds Rectal Exam: deferred Skin: General skin exam: normal color Psych: Appearance: grossly normal Mental Status: mental status grossly normal Assessment and Plan Assessment and plan (1) History of colonic polyps: Code(s): Z86.0100 - Personal history of colon polyps, unspecified Status: Acute Assessment and Plan: The patient is deemed a good candidate for the procedure. Consent signed. Will proceed. Prior Studies I have reviewed the following patient records and this information was taken into consideration when formulating the assessment and plan.: previous labs, previous ER visits, previous hospitalizations and previous clinic visits
--- NOTE | 2025-10-01 12:38 | S_PTH ---
PATIENT: Antelmo Moreno LOC: [facility] U#:[id number] AGE/SX: 59/M ROOM: RE10/01/[address]: Maikel Garcia MD : [id number] BED: DIS: 10/01/2025 SPEC #: [id number] RECD: 10/01/25 12:43 STATUS: ANN MARIE REQ #: [id number] GENESIS: 10/01/25 12:[address]: Maikel Garcia DEPT: [facility] Surgical RECD BY: Rosie Parmar ENTERED: 10/01/25 12:44 SP TYPE: Surgical OTHR DR: Clovis Levin MD Tissues: A - Colon Polypectomy Procedures: Hematoxylin and Eosin Stain Gross and Microscopic Level 4
[2025-10-01 12:43] VITALS: BP 112/61; PULSE 73; RESP 17; O2SAT 94
[2025-10-01 12:53] VITALS: BP 115/75; PULSE 77; RESP 20; O2SAT 96
[2025-10-01 13:03] VITALS: BP 122/76; PULSE 71; RESP 19; O2SAT 97
== END 2025-10-01 13:10 | disposition home or self-care (01) ==
PROVIDERS: PCP Family Medicine; Visit Provider Internal Medicine Gastroenterology
PROC: 0DJD8ZZ Inspection of Lower Intestinal Tract, Via Natural or Artificial Opening Endoscopic (ICD-10-PCS; CPT 45378; principal; 2025-10-01 13:00)
DX: Z12.11 Encounter for screening for malignant neoplasm of colon (principal); D12.2 Benign neoplasm of ascending colon; K64.8 Other hemorrhoids; E11.9 Type 2 diabetes mellitus without complications; F17.210 Nicotine dependence, cigarettes, uncomplicated; F12.90 Cannabis use, unspecified, uncomplicated; E66.9 Obesity, unspecified; Z68.32 Body mass index [BMI] 32.0-32.9, adult
CPT/HCPCS: 45385; 82948; 88305; J2704; J7120